=== PATIENT | female | born 1960 | race American Indian/Alaskan Native ===

== ENCOUNTER 2019-01-29 16:19 | Emergency (ER) | payer MEDICAID ==
--- NOTE | 2019-01-29 17:18 | EDM.PDOC ---
ED HPI GENERAL MEDICAL PROBLEM - General Chief Complaint: Back Pain or Injury Stated Complaint: BACK PAIN Time Seen by Provider: 01/29/19 17:00 Source of Information: Reports: Patient - History of Present Illness INITIAL COMMENTS - FREE TEXT/NARRATIVE: pt with Hx of chronic low back pain, is here basically asking for refill on her vicodine untill she is able to follow at pain clinic on Friday, pt has been treated with vicodin TID by her PCP until 10 days ago when she was refered to pain clinic, however she has missed her appointment due to the snow storm, pt state she was rescheduled on the , pt report Hx of low back dull pain X 3 years radiating to both legs denies with this any other associated sx or concerns. Low back Pain Score (Numeric/FACES): 7 - Related Data Allergies Allergy/AdvReac Type Severity Reaction Status Date / Time Penicillins Allergy Cannot Verified 01/29/19 16:44 Remember Home Meds: Home Meds ClonazePAM [KlonoPIN] 1 mg PO BID 04/28/14 [History] DULoxetine [Cymbalta] 120 mg PO DAILY 04/28/14 [History] Etodolac 400 mg PO DAILY 04/28/14 [History] Insulin Glarg,Human.Rec.Analog [Lantus] 20 unit SUBCUT DAILY 04/28/14 [History] Pregabalin [Lyrica] 300 mg PO DAILY 04/28/14 [History] Simvastatin [Zocor] 20 mg PO BEDTIME 04/28/14 [History] metFORMIN [Glucophage] 1,000 mg PO BIDM 04/28/14 [History] Past Medical History HEENT History: Reports: Impaired Vision Cardiovascular History: Reports: High Cholesterol, Hypertension Other Cardiovascular History: palpitations Respiratory History: Reports: Asthma Gastrointestinal History: Reports: Hemorrhoids, Irritable Bowel Syndrome 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: Reports: Fibroids Musculoskeletal History: Reports: Osteoarthritis Psychiatric History: Reports: Anxiety, Depression, Panic Attack, Psych Hospitalization(s) Endocrine/Metabolic History: Reports: Diabetes, Type II, Obesity/BMI 30+ - Past Surgical History GI Surgical History: Reports: Cholecystectomy Musculoskeletal Surgical History: Reports: Arthroscopic Knee Social & Family History - Family History Family Medical History: Noncontributory - Tobacco Use Smoking Status *Q: Current Every Day Smoker Years of Tobacco use: 10 Packs/Tins Daily: 0.5 - Caffeine Use Caffeine Use: Reports: Coffee - Recreational Drug Use Recreational Drug Use: No ED ROS GENERAL - Review of Systems Review Of Systems: See Below Constitutional: Reports: No Symptoms Respiratory: Reports: No Symptoms Cardiovascular: Reports: No Symptoms GI/Abdominal: Reports: No Symptoms ED EXAM, GENERAL - Physical Exam Exam: See Below Exam Limited By: No Limitations General Appearance: Alert, WD/WN, Mild Distress Respiratory/Chest: No Respiratory Distress, Lungs Clear, Normal Breath Sounds, No Accessory Muscle Use, Chest Non-Tender Cardiovascular: Normal Peripheral Pulses, Regular Rate, Rhythm, No Edema, No Gallop, No JVD, No Murmur, No Rub GI/Abdominal: Normal Bowel Sounds, Soft, Non-Tender Extremities: Other (tender all across lower back, ROm at spin is normal. ) Neurological: Alert, Oriented, CN II-XII Intact, Normal Cognition, Normal Gait, Normal Reflexes, No Motor/Sensory Deficits Course - Vital Signs Text/Narrative:: pt has chronic low back pain and was given 10 tablets on Vicodin to cover her until she is able to follow at pain clinic this Friday. Departure - Departure Time of Disposition: 17:18 Disposition: Home, Self-Care 01 Clinical Impression: Low back pain - Discharge Information Referrals: Yessi Watts SHOW GIRL [Primary Care Provider] -
[2019-01-29 17:37] VITALS: BP 128/75
== END 2019-01-29 17:33 | disposition home or self-care (01) ==
LOC: FB.ED 16:19
DX: M54.5 Low back pain (principal); I10 Essential (primary) hypertension; F17.210 Nicotine dependence, cigarettes, uncomplicated; E11.9 Type 2 diabetes mellitus without complications; E66.9 Obesity, unspecified; Z88.0 Allergy status to penicillin; Z79.899 Other long term (current) drug therapy
CPT/HCPCS: 99283

== ENCOUNTER 2019-03-10 17:23 | Emergency (ER) | payer MEDICAID ==
--- NOTE | 2019-03-10 18:16 | EDM.PDOC ---
ED HPI GENERAL MEDICAL PROBLEM - General Chief Complaint: ENT Problem Stated Complaint: ABCESS TOOTH Time Seen by Provider: 03/10/19 17:50 Source of Information: Reports: Patient History Limitations: Reports: No Limitations - History of Present Illness INITIAL COMMENTS - FREE TEXT/NARRATIVE: 58-year-old female with carious dentition and right upper dental pain for the past 2 weeks. She reports that her tooth continues to fragment and pieces come out frequently. She has noted swelling in the right upper jaw for the past week. She reports the pain is a 7/10 and it is aching, throbbing and sharp at times. It seems to radiate over the right side of her face and she has a headache associated with it. She has recently had shingles on her right lower jaw and she also reports that she had a pneumonia. She is not on antibiotics at present. She is supposed to see a dentist on Friday. She's had nausea today but no vomiting. She has had no fever. No chills. She is chronically on hydrocodone for her chronic back pain. There are no other associated signs or symptoms. 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 - Related Data Allergies Allergy/AdvReac Type Severity Reaction Status Date / Time Penicillins Allergy Cannot Verified 03/10/19 17:34 Remember Home Meds: Home Meds ClonazePAM [KlonoPIN] 1 mg PO BID 04/28/14 [History] DULoxetine [Cymbalta] 120 mg PO DAILY 04/28/14 [History] Etodolac 400 mg PO DAILY 04/28/14 [History] Insulin Glarg,Human.Rec.Analog [Lantus] 20 unit SUBCUT DAILY 04/28/14 [History] Pregabalin [Lyrica] 300 mg PO DAILY 04/28/14 [History] Simvastatin [Zocor] 20 mg PO BEDTIME 04/28/14 [History] metFORMIN [Glucophage] 1,000 mg PO BIDM 04/28/14 [History] Hydrocodone/Acetaminophen [Hydrocodon-Acetaminophen 5-325] 1 each PO TID #10 tablet 01/29/19 [Rx] Clindamycin HCl 450 mg PO TID 7 Days #42 capsule 03/10/19 [Rx] Past Medical History HEENT History: Reports: Impaired Vision Cardiovascular History: Reports: High Cholesterol, Hypertension Other Cardiovascular History: palpitations Respiratory History: Reports: Asthma Gastrointestinal History: Reports: Hemorrhoids, Irritable Bowel Syndrome 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: Reports: Fibroids Musculoskeletal History: Reports: Back Pain, Chronic, Osteoarthritis Psychiatric History: Reports: Anxiety, Depression, Panic Attack, Psych Hospitalization(s) Endocrine/Metabolic History: Reports: Diabetes, Type II, Obesity/BMI 30+ - Past Surgical History GI Surgical History: Reports: Cholecystectomy Female Surgical History: Reports: Hysterectomy, Tubal Ligation Musculoskeletal Surgical History: Reports: Arthroscopic Knee (2 on left and 1 on right), Other (See Below) (Foot surgery 2) Social & Family History - Tobacco Use Smoking Status *Q: Current Every Day Smoker - Caffeine Use Caffeine Use: Reports: Coffee - Alcohol Use Alcohol Use History: No - Living Situation & Occupation Social History Comment: Cares for her grandchildren. ED ROS GENERAL - Review of Systems Review Of Systems: See Below Constitutional: Reports: No Symptoms HEENT: Reports: Dental Pain (With gum swelling and redness.) Respiratory: Reports: Wheezing (But this is chronic), Cough Cardiovascular: Reports: No Symptoms Endocrine: Reports: Other (She reports that her blood sugars have been good.) GI/Abdominal: Reports: Nausea : Reports: No Symptoms Musculoskeletal: Reports: Back Pain (Chronic) Skin: Reports: No Symptoms Neurological: Reports: Headache Hematologic/Lymphatic: Reports: No Symptoms Immunologic: Reports: No Symptoms ED EXAM, GENERAL - Physical Exam Exam: See Below Exam Limited By: No Limitations General Appearance: Alert, WD/WN, No Apparent Distress Eye Exam: Bilateral Eye: EOMI, Normal Inspection, PERRL Ears: Normal External Exam, Hearing Grossly Normal Nose: Normal Inspection, Normal Mucosa, No Blood Throat/Mouth: Normal Voice, No Airway Compromise, Inflammation, Other (Carious dentition with right upper tooth that is quite carious and with associated gingival erythema) Head: Atraumatic, Normocephalic Neck: Normal Inspection, Supple, Non-Tender, Full Range of Motion Respiratory/Chest: No Respiratory Distress, No Accessory Muscle Use, Chest Non- Tender, Wheezing (That clears with cough) Cardiovascular: Normal Peripheral Pulses, Regular Rate, Rhythm, No JVD Peripheral Pulses: 2+: Radial (L), Radial (R) GI/Abdominal: Normal Bowel Sounds, Soft, Non-Tender Back Exam: Normal Inspection Extremities: Normal Inspection, Normal Range of Motion, Non-Tender, No Pedal Edema, Normal Capillary Refill Neurological: Alert, Oriented, CN II-XII Intact, Normal Cognition, No Motor/ Sensory Deficits Skin Exam: Warm, Dry, Intact, Normal Color, No Rash Lymphatic: No Adenopathy Course - Orders/Labs/Meds Orders: Active Orders 24 hr Category Date Time Status Acetaminophen/HYDROcodone [Bethany 325-5 MG] Med 03/10/19 18:08 Once 2 tab PO ONETIME ONE Clindamycin HCl [Cleocin] Med 03/10/19 18:08 Once 450 mg PO ONETIME ONE Ondansetron [Zofran ODT] Med 03/10/19 18:08 Once 4 mg PO ONETIME ONE Departure - Departure Time of Disposition: 18:23 Disposition: Home, Self-Care 01 Condition: Good Clinical Impression: Dental abscess, Poor dentition, Pain, dental - Discharge Information Prescriptions: Clindamycin HCl 450 mg PO TID 7 Days #42 capsule Referrals: Yessi Watts MANAGER ENGINE [Primary Care Provider] - Forms: ED Department Discharge Additional Instructions: You appear to have a dental abscess. You may take ibuprofen and Tylenol as needed for pain. For any further pain medications, you will need to go through your primary doctor. Keep the follow-up appointment with the dentist on 03/12/2019, that you have scheduled. Medication as prescribed (clindamycin 150 mg ). You should take probiotics or eat yogurt daily while you are on the antibiotics. Back to the emergency department for trouble swallowing, trouble breathing, unrelenting vomiting or any other concerning sign or symptom. - My Orders Last 24 Hours: My Active Orders 03/10/19 18:08 Acetaminophen/HYDROcodone [Bethany 325-5 MG] 2 tab PO ONETIME ONE Clindamycin HCl [Cleocin] 450 mg PO ONETIME ONE Ondansetron [Zofran ODT] 4 mg PO ONETIME ONE - Assessment/Plan Last 24 Hours: My Active Orders 03/10/19 18:08 Acetaminophen/HYDROcodone [Bethany 325-5 MG] 2 tab PO ONETIME ONE Clindamycin HCl [Cleocin] 450 mg PO ONETIME ONE Ondansetron [Zofran ODT] 4 mg PO ONETIME ONE
[2019-03-10] MEDS: Acetaminophen/HYDROcodone 325-5 MG Tab PO ONE (18:49)
[2019-03-10] MEDS: Ondansetron 4 MG Tab.DIS PO ONE (18:49)
[2019-03-10] MEDS: Clindamycin HCl 150 MG Cap PO ONE (18:49)
[2019-03-10 19:16] VITALS: BP 159/80
== END 2019-03-10 19:07 | disposition home or self-care (01) ==
LOC: FB.ED 17:23
DX: K04.7 Periapical abscess without sinus (principal); K02.9 Dental caries, unspecified; K00.7 Teething syndrome; I10 Essential (primary) hypertension; E11.9 Type 2 diabetes mellitus without complications; Z79.4 Long term (current) use of insulin; F41.9 Anxiety disorder, unspecified; F32.9 Major depressive disorder, single episode, unspecified; E66.9 Obesity, unspecified; F17.200 Nicotine dependence, unspecified, uncomplicated; Z79.899 Other long term (current) drug therapy; Z90.49 Acquired absence of other specified parts of digestive tract; Z90.710 Acquired absence of both cervix and uterus; Z98.51 Tubal ligation status; Z88.0 Allergy status to penicillin
CPT/HCPCS: 99282; A9270-GY

== ENCOUNTER 2020-10-15 16:20 | Emergency (ER) | payer MEDICAID ==
[2020-10-15] MEDS ORDERED: Ondansetron 4 MG Tab.DIS PO ONE (16:21)
[2020-10-15] MEDS ORDERED: Acetaminophen/oxyCODONE 325-5 MG Tab PO ONE (16:21)
--- NOTE | 2020-10-15 17:09 | EDM.PDOC ---
ED HPI GENERAL MEDICAL PROBLEM - General Stated Complaint: EVAL CONSULT Time Seen by Provider: 10/15/20 17:00 Source of Information: Reports: Patient, Family (Patient's daughter) History Limitations: Reports: Other (Patient is a poor historian. Most of the information comes from the patient's daughter.) - History of Present Illness INITIAL COMMENTS - FREE TEXT/NARRATIVE: 59-year-old female with multiple myeloma and chronic renal failure on dialysis who was just in the hospital at [facility] in [place] 09/27 to 10/12/2020 where apparently she had sepsis. She also has chronic pain related to her multiple myeloma and upon discharge she was given morphine extended release and oxycodone for her pain. She has taken all of the oxycodone and reports that they really did not seem to help much with her pain in any event. She is supposed to be following up with a new provider at the [facility] in [place] history of this week but she would not be able to have any other pain medications until then. She currently reports that her pain is a 9/10 and it is uncontrolled with medications that she had. She is really having no other problems other than nausea and she reports that she was supposed to have had a prescription for Zofran but she does not have any Zofran. She has had no fevers or chills. She has had no diarrhea. She does get hemodialysis on Tuesdays, and Friday and had her dialysis yesterday without any problems. She is here primarily because she is having uncontrolled pain and needs a temporary solution until she can have a more permanent solution through her primary provider this coming week. Apparently she also has been set up for daptomycin infusions as an outpatient 3 times a week and she was supposed to have her first of these yesterday but failed to show for it. She was unaware of this. Therefore we will give her this dose as directed by her doctor from [place]. We have also instructed her on the additional doses that she will be getting next week as an outpatient through this hospital. The patient and her daughter are here and they really want nothing else done other than solution for her pain management as above. I have stressed to them that I could divide them with this to get her through until this week when she sees her primary provider but that is not something that we would be able to do in the future through the emergency department. There are no other associated signs or symptoms. There are no other modifying factors. 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 Medication(s) (Morphine extended release) Back Pain Score (Numeric/FACES): 7 - Related Data Allergies Allergy/AdvReac Type Severity Reaction Status Date / Time Penicillins Allergy Cannot Verified 10/15/20 19:45 Remember Home Meds: Home Meds ClonazePAM [KlonoPIN] 1 mg PO BID 04/28/14 [History] DULoxetine [Cymbalta] 120 mg PO DAILY 04/28/14 [History] Etodolac 400 mg PO DAILY 04/28/14 [History] Insulin Glarg,Human.Rec.Analog [Lantus] 20 unit SUBCUT DAILY 04/28/14 [History] Pregabalin [Lyrica] 300 mg PO DAILY 04/28/14 [History] Simvastatin [Zocor] 20 mg PO BEDTIME 04/28/14 [History] metFORMIN [Glucophage] 1,000 mg PO BIDM 04/28/14 [History] Hydrocodone/Acetaminophen [Hydrocodon-Acetaminophen 5-325] 1 each PO TID #10 tablet 01/29/19 [Rx] Clindamycin HCl 450 mg PO TID 7 Days #42 capsule 03/10/19 [Rx] HYDROmorphone [Dilaudid] 2 mg PO Q6H PRN #12 tab 10/15/20 [Rx] Ondansetron [Zofran ODT] 4 mg PO Q6H PRN #20 tab.dis 10/15/20 [Rx] Past Medical History HEENT History: Reports: Impaired Vision Cardiovascular History: Reports: High Cholesterol, Hypertension Other Cardiovascular History: palpitations Respiratory History: Reports: Asthma Gastrointestinal History: Reports: Hemorrhoids, Irritable Bowel Syndrome 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: Fibroids Other CANDLE POURER History: Musculoskeletal History: Reports: Back Pain, Chronic, Osteoarthritis Other Musculoskeletal History: R foot fx Neurological History: Reports: Migraines, Neuropathy, Diabetic Psychiatric History: Reports: Anxiety, Depression, Panic Attack, Psych Hospitalization(s) Other Psychiatric History: hx ETOH abuse Endocrine/Metabolic History: Reports: Diabetes, Type II, Obesity/BMI 30+ Hematologic History: Reports: Blood Transfusion(s) Oncologic (Cancer) History: Reports: Other (See Below) (Multiple myeloma) - Infectious Disease History Infectious Disease History: Reports: Chicken Pox, Measles, Mumps, Shingles - Past Surgical History HEENT Surgical History: Reports: Myringotomy w Tube(s) GI Surgical History: Reports: Cholecystectomy Female Surgical History: Reports: Hysterectomy, Tubal Ligation Musculoskeletal Surgical History: Reports: Arthroscopic Knee (2 on left and 1 on right), Other (See Below) (Foot surgery 2) Social & Family History - Tobacco Use Tobacco Use Status *Q: Current Every Day Tobacco User - Caffeine Use Caffeine Use: Reports: Coffee - Alcohol Use Alcohol Use History: No - Living Situation & Occupation Social History Comment: She is here with her daughter. ED ROS GENERAL - Review of Systems Review Of Systems: See Below Constitutional: Reports: Malaise, Fatigue HEENT: Reports: No Symptoms Respiratory: Reports: No Symptoms Cardiovascular: Reports: No Symptoms Endocrine: Reports: Fatigue GI/Abdominal: Reports: Nausea, Vomiting Musculoskeletal: Reports: Other (Diffuse, whole-body pain) Skin: Reports: Wound (Multiple sores scattered over her body that have been long-standing and related to her condition.) Neurological: Reports: Weakness (Generalized) Hematologic/Lymphatic: Reports: No Symptoms Immunologic: Reports: No Symptoms ED EXAM, GENERAL - Physical Exam Exam: See Below Exam Limited By: No Limitations General Appearance: Alert, WD/WN, Mild Distress, Other (He is alert, appropriate and effluent in her conversation. She is nontoxic in appearance.) Eye Exam: Bilateral Eye: EOMI, Normal Inspection (Sclera are anicteric) Ears: Normal External Exam, Hearing Grossly Normal Ear Exam: Bilateral Ear: Auricle Normal Nose: Normal Inspection, Normal Mucosa, No Blood Throat/Mouth: Normal Oropharynx, Normal Voice, No Airway Compromise Head: Atraumatic, Normocephalic Neck: Normal Inspection, Supple, Non-Tender, Full Range of Motion Respiratory/Chest: No Respiratory Distress, Lungs Clear, Normal Breath Sounds, No Accessory Muscle Use, Chest Non-Tender Cardiovascular: Normal Peripheral Pulses, Regular Rate, Rhythm, No Murmur Peripheral Pulses: 2+: Radial (L), Radial (R) GI/Abdominal: Normal Bowel Sounds, Soft, Non-Tender, No Mass Back Exam: Normal Inspection Extremities: Normal Inspection, Normal Capillary Refill, Pedal Edema Neurological: Alert, Oriented, CN II-XII Intact, Normal Cognition, No Motor/Sensory Deficits Skin Exam: Warm, Dry, Normal Color, Wound/Incision (Scattered sores on her arms and trunk) Course - Vital Signs Last Recorded V/S: Last Vital Signs Temp 36.6 C 10/15/20 18:00 Pulse 85 10/15/20 18:00 Resp 20 10/15/20 18:00 BP 139/90 10/15/20 18:00 Pulse Ox 95 10/15/20 18:00 - Orders/Labs/Meds Meds: Medications Discontinued Medications Generic Name Dose Route Start Last Admin Trade Name Lui PRN Reason Stop Dose Admin Daptomycin 440 mg 10/15/20 17:30 10/15/20 17:45 Cubicin IV 10/15/20 17:31 440 mg ONETIME ONE Administration Hydromorphone HCl 2 mg 10/15/20 17:32 10/15/20 18:00 Dilaudid PO 10/15/20 17:33 2 mg ONETIME ONE Administration Ondansetron HCl 4 mg 10/15/20 17:31 10/15/20 17:50 Zofran Odt PO 10/15/20 17:32 4 mg ONETIME ONE Administration - Re-Assessments/Exams Free Text/Narrative Re-Assessment/Exam: 10/15/20 17:30: Patient missed an outpatient visit yesterday for daptomycin infusion and we will carry that out today. She is here primarily because she is having pain control problems and she is out of her oxycodone. Oxycodone was not really helping with her pain and she needs additional pain medications to get her through until she can follow-up with her doctor on Friday of this coming week. She also does not have any Zofran for nausea. I will give her take-home packs of Zofran and Percocet and I will also provide her with prescriptions for Zofran and for a small number of Dilaudid tablets. I have stressed that for any further pain control measures, they will have to go through the primary provider this week. The plan will be to discharge her after the above. Departure - Departure Time of Disposition: 18:20 Disposition: Home, Self-Care 01 Condition: Good Clinical Impression: Uncontrolled pain Multiple myeloma Qualifiers: Multiple myeloma remission status: not in remission Qualified Code(s): C90.00 - Multiple myeloma not having achieved remission - Discharge Information Prescriptions: HYDROmorphone [Dilaudid] 2 mg PO Q6H PRN #12 tab PRN Reason: Moderate to severe pain Ondansetron [Zofran ODT] 4 mg PO Q6H PRN #20 tab.dis PRN Reason: Nausea/Vomiting Referrals: PCP,Not In Area [Ordering Only Provider] - Forms: ED Department Discharge Additional Instructions: Continue your cares as per your doctor in [place]. Keep your appointment with your doctor on Friday of this coming week. I have given you prescriptions for antinausea medication (Zofran 4 mg ODT) and for additional pain medications (Dilaudid 2 mg). You will need to get all further pain medications and pain management through your primary provider. We also gave you your outpatient infusion of daptomycin that you were supposed to get yesterday. You need to follow-up with your doctor in [place] in regard to any further outpatient visits that you have been scheduled. Back to the emergency department for unrelenting vomiting, severe weakness, trouble breathing, high fever or any other concerning sign or symptom. Sepsis Event Note (ED) - Focused Exam Vital Signs: Vital Signs Temp Pulse Resp BP Pulse Ox 10/15/20 18:00 36.6 C 85 20 139/90 95
[2020-10-15] MEDS: DAPTOmycin 500 MG Vial IV ONE (17:45)
[2020-10-15] MEDS: Ondansetron 4 MG Tab.DIS PO ONE (17:50)
[2020-10-15] MEDS: HYDROmorphone 2 MG Tab PO ONE (18:00)
[2020-10-15 19:45] VITALS: BP 139/90; PULSE 85
== END 2020-10-15 18:20 | disposition home or self-care (01) ==
LOC: FB.ED 16:20
DX: R52 Pain, unspecified (principal); C90.00 Multiple myeloma not having achieved remission; L98.9 Disorder of the skin and subcutaneous tissue, unspecified; I10 Essential (primary) hypertension; E78.00 Pure hypercholesterolemia, unspecified; J45.909 Unspecified asthma, uncomplicated; E66.9 Obesity, unspecified; E11.40 Type 2 diabetes mellitus with diabetic neuropathy, unspecified; F41.9 Anxiety disorder, unspecified; F32.9 Major depressive disorder, single episode, unspecified; F17.200 Nicotine dependence, unspecified, uncomplicated; Z88.0 Allergy status to penicillin; Z79.4 Long term (current) use of insulin; Z90.710 Acquired absence of both cervix and uterus; Z98.51 Tubal ligation status; Z79.899 Other long term (current) drug therapy
CPT/HCPCS: 96374; 99283; A9270; J0878

== ENCOUNTER 2020-10-25 20:38 | Emergency (ER) | payer MEDICAID ==
[2020-10-25] MEDS ORDERED: cefTRIAXone 2 GM Vial IVPUSH ONE (20:57)
[2020-10-25] MEDS ORDERED: Sodium Chloride 0.9% 1,000 ML IV ONE (20:57)
[2020-10-25 21:12] VITALS: BP 153/101; PULSE 131
--- NOTE | 2020-10-25 21:34 | EDM.PDOC ---
ED HPI GENERAL MEDICAL PROBLEM - General Chief Complaint: Fever Stated Complaint: chills/fever Time Seen by Provider: 10/25/20 21:31 Source of Information: Reports: Patient, Family, Old Records History Limitations: Reports: Altered Mental Status - History of Present Illness INITIAL COMMENTS - FREE TEXT/NARRATIVE: Patti is a 59 yo female with fever of sudden onset this evening. She was brought by daughter,and is somewhat confused. She has a h/o MRSA bacteremia nd undergoes thrice weekly infusions fo Daptomycin. She also has a h/o MM and is on Chemotherapy,with a new cycle apparently started today.Patti has DM,chronic pain and ESRD( with x 3 weekly Dialysis in [facility]) - Related Data Allergies Allergy/AdvReac Type Severity Reaction Status Date / Time Penicillins Allergy Cannot Verified 10/25/20 20:59 Remember Home Meds: Home Meds ClonazePAM [KlonoPIN] 1 mg PO BID 04/28/14 [History] DULoxetine [Cymbalta] 120 mg PO DAILY 04/28/14 [History] Etodolac 400 mg PO DAILY 04/28/14 [History] Insulin Glarg,Human.Rec.Analog [Lantus] 20 unit SUBCUT DAILY 04/28/14 [History] Pregabalin [Lyrica] 300 mg PO DAILY 04/28/14 [History] Simvastatin [Zocor] 20 mg PO BEDTIME 04/28/14 [History] metFORMIN [Glucophage] 1,000 mg PO BIDM 04/28/14 [History] Hydrocodone/Acetaminophen [Hydrocodon-Acetaminophen 5-325] 1 each PO TID #10 tablet 01/29/19 [Rx] Clindamycin HCl 450 mg PO TID 7 Days #42 capsule 03/10/19 [Rx] HYDROmorphone [Dilaudid] 2 mg PO Q6H PRN #12 tab 10/15/20 [Rx] Ondansetron [Zofran ODT] 4 mg PO Q6H PRN #20 tab.dis 10/15/20 [Rx] Past Medical History HEENT History: Reports: Impaired Vision Cardiovascular History: Reports: High Cholesterol, Hypertension Other Cardiovascular History: palpitations Respiratory History: Reports: Asthma Gastrointestinal History: Reports: Hemorrhoids, Irritable Bowel Syndrome COOLER TENDER History: Reports: Fibroids Other COOLER TENDER History: Musculoskeletal History: Reports: Back Pain, Chronic, Osteoarthritis Other Musculoskeletal History: R foot fx Neurological History: Reports: Migraines, Neuropathy, Diabetic Psychiatric History: Reports: Anxiety, Depression, Panic Attack, Psych Hospitalization(s) Other Psychiatric History: hx ETOH abuse Endocrine/Metabolic History: Reports: Diabetes, Type II, Obesity/BMI 30+ Hematologic History: Reports: Blood Transfusion(s) Oncologic (Cancer) History: Reports: Other (See Below) (Multiple myeloma) - Infectious Disease History Infectious Disease History: Reports: Chicken Pox, Measles, Mumps, Shingles - Past Surgical History HEENT Surgical History: Reports: Myringotomy w Tube(s) Social & Family History - Family History Family Medical History: No Pertinent Family History - Caffeine Use Caffeine Use: Reports: Coffee ED ROS GENERAL - Review of Systems Review Of Systems: Comprehensive ROS is negative, except as noted in HPI. ED EXAM, SEPSIS - Physical Exam Exam: See Below Exam Limited By: Altered Mental Status General Appearance: Alert, Mild Distress Nose: Normal Inspection Throat/Mouth: Normal Inspection Head: Atraumatic Neck: Normal Inspection Respiratory/Chest: Crackles, Rhonchi Cardiovascular: Tachycardia GI/Abdominal Exam: Soft Psychiatric: Normal Affect Skin: Warm Course - Vital Signs Last Recorded V/S: Last Vital Signs Temp 103.3 F H 10/25/20 20:45 Pulse 131 H 10/25/20 20:45 Resp 23 H 10/25/20 20:45 BP 153/101 H 10/25/20 20:45 Pulse Ox 96 10/25/20 20:45 - Orders/Labs/Meds Orders: Active Orders 24 hr Category Date Time Status Chest 1V Frontal [CR] Stat Exams 10/25/20 20:56 Taken CORONAVIRUS COVID-19 BLADE [MOLEC] Stat Lab 10/25/20 20:56 Ordered CULTURE BLOOD [BC] Urgent Lab 10/25/20 21:10 Received CULTURE BLOOD [BC] Urgent Lab 10/25/20 21:15 Received CULTURE URINE [RM] Stat Lab 10/25/20 22:05 Ordered Sodium Chloride 0.9% [Saline Flush] Med 10/25/20 20:56 Active 10 ml FLUSH ASDIRECTED PRN Vancomycin/Dextrose 5%-Water [Vancomycin 1 GM/200 ML in Med 10/25/20 22:00 Active D5W] 1 gm Premix Bag 1 bag IV ONETIME Blood Culture x2 Reflex Set [OM.PC] Urgent Oth 10/25/20 20:56 Ordered Isolation [COMM] Routine Oth 10/25/20 20:58 Ordered Peripheral IV Insertion Adult [OM.PC] Routine Oth 10/25/20 20:56 Ordered Medication Orders Vancomycin HCl 1 gm/ Premix 200 mls @ 133.605 mls/hr IV ONETIME ONE Stop: 10/25/20 23:29 Last Admin: 10/25/20 22:04 Dose: 133.605 mls/hr Documented by: SILVIA Sodium Chloride (Saline Flush) 10 ml FLUSH ASDIRECTED PRN PRN Reason: Keep Vein Open Last Admin: 10/25/20 21:55 Dose: 10 ml Documented by: Admin: 10/25/20 21:38 Dose: 10 ml Documented by: CHRISTOPHE Labs: Laboratory Tests 10/25/20 10/25/20 10/25/20 Range/Units 21:10 21:10 21:10 WBC 8.2 (3.0-10.3) x10-3/uL RBC 3.10 L (3.60-5.20) x10(6)uL Hgb 8.9 L (11.4-15.5) g/dL Hct 28.2 L (34.2-48.2) % MCV 90.7 (76.7-100.5) fL MCH 28.8 (23.9-33.9) pg MCHC 31.8 L (31.9-34.8) g/dL RDW 15.5 (12.3-16.5) % Plt Count 273 (151-488) x10(3)uL MPV 8.4 (7.1-12.4) fL Neut % (Auto) 90.1 H (30.8-76.2) % Lymph % (Auto) 3.3 L (18.4-52.1) % Fleming % (Auto) 0.9 L (4.4-15.7) % Eos % (Auto) 5.6 (0.6-8.1) % Baso % (Auto) 0.1 L (0.2-1.5) % Neut # (Auto) 7.4 H (1.5-6.3) x10-3/uL Lymph # (Auto) 0.3 L (1.0-4.4) x10-3/uL Fleming # (Auto) 0.1 L (0.3-1.0) x10-3/uL Eos # (Auto) 0.5 (0.0-0.8) x10-3/uL Baso # (Auto) 0.0 (0.0-0.1) x10-3/uL Sodium 133 L (135-145) mmol/L Potassium 3.8 (3.5-5.3) mmol/L Chloride 94 L (100-110) mmol/L Carbon Dioxide 28 (21-32) mmol/L BUN 19 H (7-18) mg/dL Creatinine 5.2 H* (0.55-1.02) mg/dL Est Cr Clr Drug Dosing TNP Estimated GFR (MDRD) 8 L (>60) BUN/Creatinine Ratio 3.7 L (9-20) Glucose 74 L (80-116) mg/dL Lactic Acid (0.4-2.0) mmol/L Calcium 8.6 (8.6-10.2) mg/dL Total Bilirubin 0.3 (0.1-1.3) mg/dL AST 31 H D (5-25) IU/L ALT 19 D (12-36) U/L Alkaline Phosphatase 153 H (56-112) IU/L Troponin I 166.3 H* (4.0-60.3) pg/mL C-Reactive Protein (0.5-0.9) mg/dL Total Protein 7.0 (6.0-8.0) g/dL Albumin 2.6 L (3.5-5.2) g/dL Globulin 4.4 g/dL Albumin/Globulin Ratio 0.6 Urine Color (YELLOW) Urine Appearance (CLEAR) Urine pH (5.0-6.5) Ur Specific [place] (1.010-1.025) Urine Protein (NEGATIVE) mg/dL Urine Glucose (UA) (NORMAL) mg/dL Urine Ketones (NEGATIVE) mg/dL Urine Occult Blood (NEGATIVE) Urine Nitrite (NEGATIVE) Urine Bilirubin (NEGATIVE) Urine Urobilinogen (NEGATIVE) mg/dL Ur Leukocyte Esterase (NEGATIVE) Urine RBC (0-5) Urine WBC (0-5) Ur Squamous Epith Cells (NS,R,O) Urine Bacteria (NS) Urine Opiates Screen (NEGATIVE) Ur Oxycodone Screen (NEGATIVE) Ur Propoxyphene Screen (NEGATIVE) Ur Barbituates Screen (NEGATIVE) Ur Tricyclics Screen (NEGATIVE) Ur Phencyclidine Scrn (NEGATIVE) Ur Amphetamine Screen (NEGATIVE) Urine MDMA Screen (NEGATIVE) U Benzodiazepines Scrn (NEGATIVE) U Cocaine Metab Screen (NEGATIVE) U Marijuana (THC) Screen (NEGATIVE) 10/25/20 10/25/20 10/25/20 Range/Units 21:15 21:28 21:30 WBC (3.0-10.3) x10-3/uL RBC (3.60-5.20) x10(6)uL Hgb (11.4-15.5) g/dL Hct (34.2-48.2) % MCV (76.7-100.5) fL MCH (23.9-33.9) pg MCHC (31.9-34.8) g/dL RDW (12.3-16.5) % Plt Count (151-488) x10(3)uL MPV (7.1-12.4) fL Neut % (Auto) (30.8-76.2) % Lymph % (Auto) (18.4-52.1) % Fleming % (Auto) (4.4-15.7) % Eos % (Auto) (0.6-8.1) % Baso % (Auto) (0.2-1.5) % Neut # (Auto) (1.5-6.3) x10-3/uL Lymph # (Auto) (1.0-4.4) x10-3/uL Fleming # (Auto) (0.3-1.0) x10-3/uL Eos # (Auto) (0.0-0.8) x10-3/uL Baso # (Auto) (0.0-0.1) x10-3/uL Sodium (135-145) mmol/L Potassium (3.5-5.3) mmol/L Chloride (100-110) mmol/L Carbon Dioxide (21-32) mmol/L BUN (7-18) mg/dL Creatinine (0.55-1.02) mg/dL Est Cr Clr Drug Dosing Estimated GFR (MDRD) (>60) BUN/Creatinine Ratio (9-20) Glucose (80-116) mg/dL Lactic Acid 1.4 (0.4-2.0) mmol/L Calcium (8.6-10.2) mg/dL Total Bilirubin (0.1-1.3) mg/dL AST (5-25) IU/L ALT (12-36) U/L Alkaline Phosphatase (56-112) IU/L Troponin I (4.0-60.3) pg/mL C-Reactive Protein 15.4 H* (0.5-0.9) mg/dL Total Protein (6.0-8.0) g/dL Albumin (3.5-5.2) g/dL Globulin g/dL Albumin/Globulin Ratio Urine Color Yellow (YELLOW) Urine Appearance Clear (CLEAR) Urine pH 8.0 H (5.0-6.5) Ur Specific [place] 1.010 (1.010-1.025) Urine Protein Trace (NEGATIVE) mg/dL Urine Glucose (UA) Normal (NORMAL) mg/dL Urine Ketones Negative (NEGATIVE) mg/dL Urine Occult Blood Moderate H (NEGATIVE) Urine Nitrite Negative (NEGATIVE) Urine Bilirubin Negative (NEGATIVE) Urine Urobilinogen Normal (NEGATIVE) mg/dL Ur Leukocyte Esterase Large H (NEGATIVE) Urine RBC 5-10 H (0-5) Urine WBC 10-20 H (0-5) Ur Squamous Epith Cells Occasional (NS,R,O) Urine Bacteria Moderate H (NS) Urine Opiates Screen (NEGATIVE) Ur Oxycodone Screen (NEGATIVE) Ur Propoxyphene Screen (NEGATIVE) Ur Barbituates Screen (NEGATIVE) Ur Tricyclics Screen (NEGATIVE) Ur Phencyclidine Scrn (NEGATIVE) Ur Amphetamine Screen (NEGATIVE) Urine MDMA Screen (NEGATIVE) U Benzodiazepines Scrn (NEGATIVE) U Cocaine Metab Screen (NEGATIVE) U Marijuana (THC) Screen (NEGATIVE) 10/25/20 Range/Units 21:30 WBC (3.0-10.3) x10-3/uL RBC (3.60-5.20) x10(6)uL Hgb (11.4-15.5) g/dL Hct (34.2-48.2) % MCV (76.7-100.5) fL MCH (23.9-33.9) pg MCHC (31.9-34.8) g/dL RDW (12.3-16.5) % Plt Count (151-488) x10(3)uL MPV (7.1-12.4) fL Neut % (Auto) (30.8-76.2) % Lymph % (Auto) (18.4-52.1) % Fleming % (Auto) (4.4-15.7) % Eos % (Auto) (0.6-8.1) % Baso % (Auto) (0.2-1.5) % Neut # (Auto) (1.5-6.3) x10-3/uL Lymph # (Auto) (1.0-4.4) x10-3/uL Fleming # (Auto) (0.3-1.0) x10-3/uL Eos # (Auto) (0.0-0.8) x10-3/uL Baso # (Auto) (0.0-0.1) x10-3/uL Sodium (135-145) mmol/L Potassium (3.5-5.3) mmol/L Chloride (100-110) mmol/L Carbon Dioxide (21-32) mmol/L BUN (7-18) mg/dL Creatinine (0.55-1.02) mg/dL Est Cr Clr Drug Dosing Estimated GFR (MDRD) (>60) BUN/Creatinine Ratio (9-20) Glucose (80-116) mg/dL Lactic Acid (0.4-2.0) mmol/L Calcium (8.6-10.2) mg/dL Total Bilirubin (0.1-1.3) mg/dL AST (5-25) IU/L ALT (12-36) U/L Alkaline Phosphatase (56-112) IU/L Troponin I (4.0-60.3) pg/mL C-Reactive Protein (0.5-0.9) mg/dL Total Protein (6.0-8.0) g/dL Albumin (3.5-5.2) g/dL Globulin g/dL Albumin/Globulin Ratio Urine Color (YELLOW) Urine Appearance (CLEAR) Urine pH (5.0-6.5) Ur Specific [place] (1.010-1.025) Urine Protein (NEGATIVE) mg/dL Urine Glucose (UA) (NORMAL) mg/dL Urine Ketones (NEGATIVE) mg/dL Urine Occult Blood (NEGATIVE) Urine Nitrite (NEGATIVE) Urine Bilirubin (NEGATIVE) Urine Urobilinogen (NEGATIVE) mg/dL Ur Leukocyte Esterase (NEGATIVE) Urine RBC (0-5) Urine WBC (0-5) Ur Squamous Epith Cells (NS,R,O) Urine Bacteria (NS) Urine Opiates Screen Positive H (NEGATIVE) Ur Oxycodone Screen Positive H (NEGATIVE) Ur Propoxyphene Screen Negative (NEGATIVE) Ur Barbituates Screen Negative (NEGATIVE) Ur Tricyclics Screen Negative (NEGATIVE) Ur Phencyclidine Scrn Negative (NEGATIVE) Ur Amphetamine Screen Negative (NEGATIVE) Urine MDMA Screen Negative (NEGATIVE) U Benzodiazepines Scrn Negative (NEGATIVE) U Cocaine Metab Screen Negative (NEGATIVE) U Marijuana (THC) Screen Positive H (NEGATIVE) Meds: Medications Generic Name Dose Route Start Last Admin Trade Name Freq PRN Reason Stop Dose Admin Vancomycin HCl 1 gm/ Premix 200 mls @ 133.605 mls/hr 10/25/20 22:00 10/25/20 22:04 IV 10/25/20 23:29 133.605 mls/hr ONETIME ONE Administration Sodium Chloride 10 ml 10/25/20 20:56 10/25/20 21:55 Saline Flush FLUSH 10 ml ASDIRECTED PRN Administration Keep Vein Open Discontinued Medications Generic Name Dose Route Start Last Admin Trade Name Freq PRN Reason Stop Dose Admin Acetaminophen 1,000 mg 10/25/20 21:35 10/25/20 21:39 Tylenol Extra Strength PO 10/25/20 21:36 1,000 mg ONETIME ONE Administration Ceftriaxone Sodium 2 gm 10/25/20 20:57 10/25/20 21:40 Rocephin IVPUSH 10/25/20 20:58 2 gm ONETIME ONE Administration Sodium Chloride 1,000 mls @ 999 mls/hr 10/25/20 20:57 10/25/20 21:43 Normal Saline IV 10/25/20 21:57 999 mls/hr .BOLUS ONE Administration Vancomycin HCl 1 gm/ Sodium 250 mls @ 167 mls/hr 10/25/20 20:57 Chloride IV 10/25/20 22:26 ONETIME ONE Departure - Departure Time of Disposition: 22:38 Disposition: DC/Tfer to Other 70 Clinical Impression: Systemic infection, Pneumonia, Multiple myeloma - Discharge Information Referrals: Jerry Hernández PA [Primary Care Provider] - Forms: ED Department Discharge Sepsis Event Note (ED) - Evaluation Current Stage of Sepsis: Sepsis Possible Source of Sepsis: Unknown - Focused Exam Sepsis Event Note Statement: Focused Sepsis Exam Completed Vital Signs: Vital Signs Temp Pulse Resp BP Pulse Ox 10/25/20 20:45 103.3 F H 131 H 23 H 153/101 H 96 - Problem List & Annotations (1) Pneumonia SNOMED Code(s): 248772667 Code(s): J18.9 - PNEUMONIA, UNSPECIFIED ORGANISM Status: Acute Current Visit: Yes Qualifiers: Pneumonia type: due to unspecified organism (2) CKD (chronic kidney disease) SNOMED Code(s): 313868288 Code(s): N18.9 - CHRONIC KIDNEY DISEASE, UNSPECIFIED Status: Acute Current Visit: Yes Qualifiers: Chronic kidney disease stage: on chronic dialysis Qualified Code(s): N18.6 - End stage renal disease; Z99.2 - Dependence on renal dialysis (3) Multiple myeloma SNOMED Code(s): 324295014 Code(s): C90.00 - MULTIPLE MYELOMA NOT HAVING ACHIEVED REMISSION Status: Acute Current Visit: Yes Qualifiers: Multiple myeloma remission status: unspecified Qualified Code(s): C90.00 - Multiple myeloma not having achieved remission - Problem List Review Problem List Initiated/Reviewed/Updated: Yes - My Orders Last 24 Hours: My Active Orders 10/25/20 20:56 Chest 1V Frontal [CR] Stat CORONAVIRUS COVID-19 BLADE [MOLEC] Stat Sodium Chloride 0.9% [Saline Flush] 10 ml FLUSH ASDIRECTED PRN Blood Culture x2 Reflex Set [OM.PC] Urgent Peripheral IV Insertion Adult [OM.PC] Routine 10/25/20 20:58 Isolation [COMM] Routine 10/25/20 21:10 CULTURE BLOOD [BC] Urgent 10/25/20 21:15 CULTURE BLOOD [BC] Urgent 10/25/20 22:00 Vancomycin/Dextrose 5%-Water [Vancomycin 1 GM/200 ML in D5W] 1 gm Premix Bag 1 bag IV ONETIME 10/25/20 22:05 CULTURE URINE [RM] Stat - Assessment/Plan Last 24 Hours: My Active Orders 10/25/20 20:56 Chest 1V Frontal [CR] Stat CORONAVIRUS COVID-19 BLADE [MOLEC] Stat Sodium Chloride 0.9% [Saline Flush] 10 ml FLUSH ASDIRECTED PRN Blood Culture x2 Reflex Set [OM.PC] Urgent Peripheral IV Insertion Adult [OM.PC] Routine 10/25/20 20:58 Isolation [COMM] Routine 10/25/20 21:10 CULTURE BLOOD [BC] Urgent 10/25/20 21:15 CULTURE BLOOD [BC] Urgent 10/25/20 22:00 Vancomycin/Dextrose 5%-Water [Vancomycin 1 GM/200 ML in D5W] 1 gm Premix Bag 1 bag IV ONETIME 10/25/20 22:05 CULTURE URINE [RM] Stat Plan: We started IV access,Gave a bolus of 500 NS. After cultures,IV Rocephin an Vancomycin was given. Will transfer to [facility] for admission.
[2020-10-25] MEDS ORDERED: Acetaminophen 500 MG Tab PO ONE (21:35)
[2020-10-25] MEDS: Sodium Chloride 0.9% 10 ML Syringe FLUSH PRN ×2 (21:38→21:55)
[2020-10-25] MEDS ORDERED: Vancomycin/Dextrose 5%-Water 1 GM in Premix Bag 1 BAG IV ONE (22:00)
--- NOTE | 2020-10-26 15:41 | CR ---
INDICATION: Weakness, fever. CHEST ONE VIEW: A portable AP upright view of the chest was obtained 10/25/20 and compared with 09/10/12 and 01/03/12 revealing a double port central line in place with its tip at the right atrium. Overlying EKG leads are noted. The heart appears prominent on this examination emphasized by poor inspiration and AP positioning. Pulmonary vasculature is very prominent indistinct with interstitial markings compatible with CHF and interstitial lung edema - correlate clinically as other additional etiologies such as viral pneumonia cannot be excluded. Additionally, there are relatively heavy markings and possibly active infiltration in the lower lung field on the left with an area of increased density seen peripherally. This appearance could be on the basis of COVID-19 but should be correlated clinically. Full inspiration PA and lateral views of the chest may be helpful for further evaluation when clinically possible. MTDD
== END 2020-10-26 00:10 | disposition other institution (70) ==
LOC: FB.ED 20:38
DX: J18.9 Pneumonia, unspecified organism (principal); R65.10 Systemic inflammatory response syndrome (SIRS) of non-infectious origin without acute organ dysfunction; C90.00 Multiple myeloma not having achieved remission; R41.82 Altered mental status, unspecified; R00.0 Tachycardia, unspecified; I10 Essential (primary) hypertension; E78.00 Pure hypercholesterolemia, unspecified; J45.909 Unspecified asthma, uncomplicated; E11.40 Type 2 diabetes mellitus with diabetic neuropathy, unspecified; F41.9 Anxiety disorder, unspecified; F32.9 Major depressive disorder, single episode, unspecified; E66.9 Obesity, unspecified; Z68.24 Body mass index [BMI] 24.0-24.9, adult; Z88.0 Allergy status to penicillin; Z79.899 Other long term (current) drug therapy; Z79.4 Long term (current) use of insulin; Z20.828 Contact with and (suspected) exposure to other viral communicable diseases
CPT/HCPCS: 36415; 71045; 80053; 80305-QW; 81001; 83605; 84484; 85025; 86140; 87040; 87086; 87088; 87186; 87804; 87804-59; 93005; 96365; 96375; 99285-25; A9270-GY; J0696; J3370; J7030; U0002

== ENCOUNTER 2020-11-23 12:01 | Emergency (ER) | payer MEDICAID ==
[2020-11-23] MEDS ORDERED: Acetaminophen 650 MG Supp RECTAL ONE (12:21)
[2020-11-23] MEDS ORDERED: cefTRIAXone 2 GM Vial IVPUSH ONE (12:26)
[2020-11-23] MEDS ORDERED: Vancomycin/Dextrose 5%-Water 200 ML IV ONE (12:30)
--- NOTE | 2020-11-23 12:46 | EDM.PDOC ---
ED HPI GENERAL MEDICAL PROBLEM - General Stated Complaint: POSSIBLE LOW POTASSIUM Time Seen by Provider: 11/23/20 12:05 Source of Information: Reports: Family History Limitations: Reports: No Limitations - History of Present Illness INITIAL COMMENTS - FREE TEXT/NARRATIVE: c/o fever and sepsis pt dropped off by family who promptly left, pt unable to give us hx, did say "all over" when I asked her where she was having pain, pt did not know when she had gone to dialysis and a dtr where reached by RN, reports pt completed dialysis at 11a today, had a fever x 2d, has temp 103 here on chemo for multiple myeloma, last chemo 1w ago today pt had a similar presentation to ED here one month ago, given ceftriaxone 2 gm IV and vanco 1 gm IV, sent to [facility] x 2 neg, UC positive E coli resistant cipro and levo, sensitive all others has h/o MRSA sepsis, has received daptomycin IV as outpt in past for same family reports pt had a fever a dialysis today in [place], dialysis staff told family to take her to ED, family brought here because we "know her better" [facility] dialysis called by ROMAIN Mann, pt does dialysis [address], Sat. Last dialysis panel done 2d ago, [facility] will send to us. - Related Data Allergies Allergy/AdvReac Type Severity Reaction Status Date / Time Penicillins Allergy Cannot Verified 11/23/20 12:27 Remember Home Meds: Home Meds ClonazePAM [KlonoPIN] 0.5 mg PO BID 04/28/14 [History] Ondansetron [Zofran ODT] 4 mg PO Q6H PRN #20 tab.dis 10/15/20 [Rx] Morphine [MS Contin] 15 mg PO Q12HR PRN 10/25/20 [History] Albuterol [Ventolin HFA] 2 puff .XX Q4H PRN 11/23/20 [History] Aspirin [Ecotrin EC] 325 mg PO DAILY 11/23/20 [History] Calcium Acetate [PhosLo] 667 mg PO TID 11/23/20 [History] Cyclobenzaprine [Flexeril] 10 mg PO BEDTIME 11/23/20 [History] DULoxetine [Cymbalta] 30 mg PO DAILY 11/23/20 [History] Docusate Sodium [Colace] 100 mg PO BID 11/23/20 [History] Insulin Glargine,Hum.Rec.Anlog [Lantus Solostar] 40 unit SQ BEDTIME 11/23/20 [History] Lisinopril/Hydrochlorothiazide [Lisinopril-Hctz 10-12.5 mg Tab] 1 tab DAILY 11/23/20 [History] Metoprolol Succinate [Toprol Xl] 50 mg PO DAILY 11/23/20 [History] Mupirocin Oint [Bactroban Oint] 1 appful TP BID 11/23/20 [History] Pantoprazole Sodium [Protonix] 40 mg DAILY 11/23/20 [History] Pregabalin [Lyrica] 300 mg PO BID 11/23/20 [History] Simvastatin 20 mg PO BEDTIME 11/23/20 [History] Simvastatin [Zocor] 20 mg PO DAILY 11/23/20 [History] metFORMIN [Glucophage] 1,000 mg PO BIDMEALS 11/23/20 [History] oxyCODONE 10 mg PO Q6H PRN 11/23/20 [History] Past Medical History HEENT History: Reports: Impaired Vision Cardiovascular History: Reports: High Cholesterol, Hypertension Other Cardiovascular History: palpitations Respiratory History: Reports: Asthma Gastrointestinal History: Reports: Hemorrhoids, Irritable Bowel Syndrome Genitourinary History: Reports: Diabetic Nephropathy, Renal Disease 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 TEACHER History: Reports: Fibroids Other 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 TEACHER History: Musculoskeletal History: Reports: Back Pain, Chronic, Osteoarthritis Other Musculoskeletal History: R foot fx Neurological History: Reports: Migraines, Neuropathy, Diabetic Psychiatric History: Reports: Anxiety, Depression, Panic Attack, Psych Hospitalization(s) Other Psychiatric History: hx ETOH abuse Endocrine/Metabolic History: Reports: Diabetes, Type II, Obesity/BMI 30+ Hematologic History: Reports: Blood Transfusion(s), Other (See Below) Other Hematologic History: daptomycin out patient every other day, last 10-24-20 Immunologic History: Reports: Immunosuppression Other Immunologic History: chemo, last 10-25-20 Oncologic (Cancer) History: Reports: Malignant Melanoma, Other (See Below) Dermatologic History: Reports: Other (See Below) Other Dermatologic History: lesions upper torso - Infectious Disease History Infectious Disease History: Reports: Chicken Pox, Measles, Mumps, Shingles - Past Surgical History HEENT Surgical History: Reports: Myringotomy w Tube(s) Social & Family History - Family History Family Medical History: No Pertinent Family History - Caffeine Use Caffeine Use: Reports: None ED ROS GENERAL - Review of Systems Review Of Systems: Unable To Obtain (pt not able to provide ROS, fever only c/o per ) Reason Not Obtained: limited communication initially Constitutional: Reports: Fever HEENT: Reports: No Symptoms Respiratory: Reports: No Symptoms Cardiovascular: Reports: No Symptoms Endocrine: Reports: No Symptoms GI/Abdominal: Reports: No Symptoms : Reports: No Symptoms Musculoskeletal: Reports: No Symptoms Skin: Reports: No Symptoms Neurological: Reports: No Symptoms Psychiatric: Reports: No Symptoms Hematologic/Lymphatic: Reports: No Symptoms Immunologic: Reports: No Symptoms ED EXAM, SEPSIS - Physical Exam Exam: See Below Exam Limited By: Altered Mental Status General Appearance: Alert, WD/WN, Other (vigorous, makes eye contact, answers some questions, some answer appropriate) Nose: Normal Inspection Throat/Mouth: Normal Inspection, Normal Lips, Normal Oropharynx, Normal Voice, No Airway Compromise Head: Atraumatic, Normocephalic Neck: Normal Inspection, Supple, Non-Tender, Full Range of Motion. No: Lymphadenopathy (R), Lymphadenopathy (L) Respiratory/Chest: No Respiratory Distress, Lungs Clear, Normal Breath Sounds, Chest Non-Tender, Other (PO 85% on RA on arrival, no tachypnea, no dyspnea, no cough, no accessory muscles, no retractions) Cardiovascular: Regular Rate, Rhythm, No Edema, No Murmur, Other (2/6 TARA at LSB) GI/Abdominal Exam: Soft, Non-Tender, No Distention Back: Normal Inspection. No: CVA Tenderness (R), CVA Tenderness (L) Extremities: Normal Inspection, Normal Range of Motion, Non-Tender, No Pedal Edema Neurological: Alert, CN II-XII Intact, No Motor/Sensory Deficits Skin: Warm, Dry, Intact, Normal Color, No Rash Course - Vital Signs Last Recorded V/S: Last Vital Signs Temp 38.2 C H 11/23/20 14:30 Pulse 85 11/23/20 14:30 Resp 22 H 11/23/20 14:30 BP 110/52 L 11/23/20 14:30 Pulse Ox 96 11/23/20 14:30 - Orders/Labs/Meds Orders: Active Orders 24 hr Category Date Time Status EKG Documentation Completion [RC] ASDIRECTED Care 11/23/20 12:17 Active Oxygen Therapy Adult [Oxygen Therapy, ED] [RC] Care 11/23/20 12:05 Active ASDIRECTED CULTURE BLOOD [BC] Urgent Lab 11/23/20 12:03 Received CULTURE BLOOD [BC] Urgent Lab 11/23/20 12:10 Received Blood Culture x2 Reflex Set [OM.PC] Urgent Oth 11/23/20 12:16 Ordered Isolation [COMM] Routine Oth 11/23/20 12:19 Ordered EKG 12 Lead [EK] Routine Ther 11/23/20 12:16 Ordered Labs: Laboratory Tests 11/23/20 11/23/20 11/23/20 Range/Units 12:10 12:10 12:10 WBC 11.6 H (3.0-10.3) x10-3/uL RBC 3.07 L (3.60-5.20) x10(6)uL Hgb 8.9 L (11.4-15.5) g/dL Hct 27.1 L (34.2-48.2) % MCV 88.3 (76.7-100.5) fL MCH 28.9 (23.9-33.9) pg MCHC 32.7 (31.9-34.8) g/dL RDW 14.9 (12.3-16.5) % Plt Count 118 L (151-488) x10(3)uL MPV 9.1 (7.1-12.4) fL Neut % (Auto) 88.3 H (30.8-76.2) % Lymph % (Auto) 5.2 L (18.4-52.1) % [place] % (Auto) 5.3 (4.4-15.7) % Eos % (Auto) 0.9 (0.6-8.1) % Baso % (Auto) 0.3 (0.2-1.5) % Neut # (Auto) 10.2 H (1.5-6.3) x10-3/uL Lymph # (Auto) 0.6 L (1.0-4.4) x10-3/uL [place] # (Auto) 0.6 (0.3-1.0) x10-3/uL Eos # (Auto) 0.1 (0.0-0.8) x10-3/uL Baso # (Auto) 0.0 (0.0-0.1) x10-3/uL Sodium 135 (135-145) mmol/L Potassium 3.9 (3.5-5.3) mmol/L Chloride 94 L (100-110) mmol/L Carbon Dioxide 33 H (21-32) mmol/L BUN 11 (7-18) mg/dL Creatinine 2.4 H* (0.55-1.02) mg/dL Est Cr Clr Drug Dosing TNP Estimated GFR (MDRD) 21 L (>60) BUN/Creatinine Ratio 4.6 L (9-20) Glucose 62 L (80-116) mg/dL POC Glucose (74-100) mg/dL Lactic Acid (0.4-2.0) mmol/L Calcium 8.1 L (8.6-10.2) mg/dL Total Bilirubin 0.3 (0.1-1.3) mg/dL AST 46 H D (5-25) IU/L ALT 20 (12-36) U/L Alkaline Phosphatase 96 (56-112) IU/L Troponin I 16.7 (4.0-60.3) pg/mL C-Reactive Protein 16.1 H* (0.5-0.9) mg/dL Total Protein 6.6 (6.0-8.0) g/dL Albumin 3.0 L (3.5-5.2) g/dL Globulin 3.6 g/dL Albumin/Globulin Ratio 0.8 Urine Color (YELLOW) Urine Appearance (CLEAR) Urine pH (5.0-6.5) Ur Specific [place] (1.010-1.025) Urine Protein (NEGATIVE) mg/dL Urine Glucose (UA) (NORMAL) mg/dL Urine Ketones (NEGATIVE) mg/dL Urine Occult Blood (NEGATIVE) Urine Nitrite (NEGATIVE) Urine Bilirubin (NEGATIVE) Urine Urobilinogen (NEGATIVE) mg/dL Ur Leukocyte Esterase (NEGATIVE) Urine RBC (0-5) Urine WBC (0-5) Ur Squamous Epith Cells (NS,R,O) Urine Bacteria (NS) Urine Opiates Screen (NEGATIVE) Ur Oxycodone Screen (NEGATIVE) Ur Propoxyphene Screen (NEGATIVE) Ur Barbituates Screen (NEGATIVE) Ur Tricyclics Screen (NEGATIVE) Ur Phencyclidine Scrn (NEGATIVE) Ur Amphetamine Screen (NEGATIVE) Urine MDMA Screen (NEGATIVE) U Benzodiazepines Scrn (NEGATIVE) U Cocaine Metab Screen (NEGATIVE) U Marijuana (THC) Screen (NEGATIVE) SARS-CoV-2 RNA (BLADE) (NEGATIVE) 11/23/20 11/23/20 11/23/20 Range/Units 12:10 12:23 12:30 WBC (3.0-10.3) x10-3/uL RBC (3.60-5.20) x10(6)uL Hgb (11.4-15.5) g/dL Hct (34.2-48.2) % MCV (76.7-100.5) fL MCH (23.9-33.9) pg MCHC (31.9-34.8) g/dL RDW (12.3-16.5) % Plt Count (151-488) x10(3)uL MPV (7.1-12.4) fL Neut % (Auto) (30.8-76.2) % Lymph % (Auto) (18.4-52.1) % [place] % (Auto) (4.4-15.7) % Eos % (Auto) (0.6-8.1) % Baso % (Auto) (0.2-1.5) % Neut # (Auto) (1.5-6.3) x10-3/uL Lymph # (Auto) (1.0-4.4) x10-3/uL [place] # (Auto) (0.3-1.0) x10-3/uL Eos # (Auto) (0.0-0.8) x10-3/uL Baso # (Auto) (0.0-0.1) x10-3/uL Sodium (135-145) mmol/L Potassium (3.5-5.3) mmol/L Chloride (100-110) mmol/L Carbon Dioxide (21-32) mmol/L BUN (7-18) mg/dL Creatinine (0.55-1.02) mg/dL Est Cr Clr Drug Dosing Estimated GFR (MDRD) (>60) BUN/Creatinine Ratio (9-20) Glucose (80-116) mg/dL POC Glucose (74-100) mg/dL Lactic Acid 1.2 (0.4-2.0) mmol/L Calcium (8.6-10.2) mg/dL Total Bilirubin (0.1-1.3) mg/dL AST (5-25) IU/L ALT (12-36) U/L Alkaline Phosphatase (56-112) IU/L Troponin I (4.0-60.3) pg/mL C-Reactive Protein (0.5-0.9) mg/dL Total Protein (6.0-8.0) g/dL Albumin (3.5-5.2) g/dL Globulin g/dL Albumin/Globulin Ratio Urine Color Yellow (YELLOW) Urine Appearance Clear (CLEAR) Urine pH 9.0 H (5.0-6.5) Ur Specific [place] 1.015 (1.010-1.025) Urine Protein Negative (NEGATIVE) mg/dL Urine Glucose (UA) Normal (NORMAL) mg/dL Urine Ketones Negative (NEGATIVE) mg/dL Urine Occult Blood Moderate H (NEGATIVE) Urine Nitrite Negative (NEGATIVE) Urine Bilirubin Negative (NEGATIVE) Urine Urobilinogen Normal (NEGATIVE) mg/dL Ur Leukocyte Esterase Negative (NEGATIVE) Urine RBC 0-5 (0-5) Urine WBC 0-5 (0-5) Ur Squamous Epith Cells Few H (NS,R,O) Urine Bacteria Rare H (NS) Urine Opiates Screen (NEGATIVE) Ur Oxycodone Screen (NEGATIVE) Ur Propoxyphene Screen (NEGATIVE) Ur Barbituates Screen (NEGATIVE) Ur Tricyclics Screen (NEGATIVE) Ur Phencyclidine Scrn (NEGATIVE) Ur Amphetamine Screen (NEGATIVE) Urine MDMA Screen (NEGATIVE) U Benzodiazepines Scrn (NEGATIVE) U Cocaine Metab Screen (NEGATIVE) U Marijuana (THC) Screen (NEGATIVE) SARS-CoV-2 RNA (BLADE) Positive H (NEGATIVE) 11/23/20 11/23/20 11/23/20 Range/Units 12:30 15:43 16:02 WBC (3.0-10.3) x10-3/uL RBC (3.60-5.20) x10(6)uL Hgb (11.4-15.5) g/dL Hct (34.2-48.2) % MCV (76.7-100.5) fL MCH (23.9-33.9) pg MCHC (31.9-34.8) g/dL RDW (12.3-16.5) % Plt Count (151-488) x10(3)uL MPV (7.1-12.4) fL Neut % (Auto) (30.8-76.2) % Lymph % (Auto) (18.4-52.1) % [place] % (Auto) (4.4-15.7) % Eos % (Auto) (0.6-8.1) % Baso % (Auto) (0.2-1.5) % Neut # (Auto) (1.5-6.3) x10-3/uL Lymph # (Auto) (1.0-4.4) x10-3/uL [place] # (Auto) (0.3-1.0) x10-3/uL Eos # (Auto) (0.0-0.8) x10-3/uL Baso # (Auto) (0.0-0.1) x10-3/uL Sodium (135-145) mmol/L Potassium (3.5-5.3) mmol/L Chloride (100-110) mmol/L Carbon Dioxide (21-32) mmol/L BUN (7-18) mg/dL Creatinine (0.55-1.02) mg/dL Est Cr Clr Drug Dosing Estimated GFR (MDRD) (>60) BUN/Creatinine Ratio (9-20) Glucose (80-116) mg/dL POC Glucose 25 L* 132 H (74-100) mg/dL Lactic Acid (0.4-2.0) mmol/L Calcium (8.6-10.2) mg/dL Total Bilirubin (0.1-1.3) mg/dL AST (5-25) IU/L ALT (12-36) U/L Alkaline Phosphatase (56-112) IU/L Troponin I (4.0-60.3) pg/mL C-Reactive Protein (0.5-0.9) mg/dL Total Protein (6.0-8.0) g/dL Albumin (3.5-5.2) g/dL Globulin g/dL Albumin/Globulin Ratio Urine Color (YELLOW) Urine Appearance (CLEAR) Urine pH (5.0-6.5) Ur Specific [place] (1.010-1.025) Urine Protein (NEGATIVE) mg/dL Urine Glucose (UA) (NORMAL) mg/dL Urine Ketones (NEGATIVE) mg/dL Urine Occult Blood (NEGATIVE) Urine Nitrite (NEGATIVE) Urine Bilirubin (NEGATIVE) Urine Urobilinogen (NEGATIVE) mg/dL Ur Leukocyte Esterase (NEGATIVE) Urine RBC (0-5) Urine WBC (0-5) Ur Squamous Epith Cells (NS,R,O) Urine Bacteria (NS) Urine Opiates Screen Positive H (NEGATIVE) Ur Oxycodone Screen Positive H (NEGATIVE) Ur Propoxyphene Screen Negative (NEGATIVE) Ur Barbituates Screen Negative (NEGATIVE) Ur Tricyclics Screen Positive H (NEGATIVE) Ur Phencyclidine Scrn Negative (NEGATIVE) Ur Amphetamine Screen Negative (NEGATIVE) Urine MDMA Screen Negative (NEGATIVE) U Benzodiazepines Scrn Negative (NEGATIVE) U Cocaine Metab Screen Negative (NEGATIVE) U Marijuana (THC) Screen Positive H (NEGATIVE) SARS-CoV-2 RNA (BLADE) (NEGATIVE) Meds: Medications Discontinued Medications Generic Name Dose Route Start Last Admin Trade Name Lui PRN Reason Stop Dose Admin Acetaminophen 650 mg 11/23/20 12:21 11/23/20 12:28 Tylenol RECTAL 11/23/20 12:22 650 mg NOW ONE Administration Ceftriaxone Sodium 2 gm 11/23/20 12:26 11/23/20 12:40 Rocephin IVPUSH 11/23/20 12:27 2 gm ONETIME ONE Administration Dexamethasone 10 mg 11/23/20 15:33 11/23/20 15:37 Dexamethasone PO 11/23/20 15:34 10 mg ONETIME ONE Administration Dextrose/Water 50 ml 11/23/20 13:06 11/23/20 13:18 Dextrose 50% In Water IVPUSH 11/23/20 13:07 50 ml ONETIME ONE Administration Dextrose/Water 50 ml 11/23/20 15:48 11/23/20 15:45 Dextrose 50% In Water IVPUSH 11/23/20 15:49 50 ml ONETIME ONE Administration Vancomycin HCl 200 mls @ 200 mls/hr 11/23/20 12:30 11/23/20 12:54 Vancomycin 1 Gm/200 Ml In D5w IV 11/23/20 13:29 200 mls/hr ONETIME ONE Administration Sodium Chloride 500 mls @ 500 mls/hr 11/23/20 14:33 11/23/20 14:45 Normal Saline IV 11/23/20 15:32 500 mls/hr .BOLUS ONE Administration Dextrose/Sodium Chloride 1,000 mls @ 999 mls/hr 11/23/20 16:05 11/23/20 16:05 Dextrose 5%-Normal Saline IV 11/23/20 16:35 999 mls/hr ASDIRECTED EDITH Administration - Re-Assessments/Exams Free Text/Narrative Re-Assessment/Exam: 11/23/20 13:37 labs reviewed pt sitting upright, talking, more alert after APAP 650 mg KS and decrease temp Dr Vidal called, CxR 1v shows b/l infiltrates without evidence of pul congestion, central line tip may be in RV 11/23/20 14:47 acceptance received at [facility] by Dr Dahl, however dtr Aleta at [phone] said that care and records had just been transferred to [facility] and requested [place] Dr Rodriguez at [facility] accepted pt to COVID unit at [facility], waiting bed assignment, pt informed and agrees pt states she is full code Departure - Departure Time of Disposition: 14:50 Disposition: DC/Tfer to Other 70 Condition: Fair Clinical Impression: Pneumonia due to COVID-19 virus, Leukocytosis, Left shift, Hypoalbuminemia, Elevated C-reactive protein (CRP), Thrombocytopenia, Immunocompromised, Central line complication, Fever, Normochromic normocytic anemia Multiple myeloma Qualifiers: Multiple myeloma remission status: unspecified Qualified Code(s): C90.00 - Multiple myeloma not having achieved remission - Discharge Information *PRESCRIPTION DRUG MONITORING PROGRAM REVIEWED*: Not Applicable *COPY OF PRESCRIPTION DRUG MONITORING REPORT IN PATIENT SNOW: Not Applicable Referrals: Jerry Hernández PA [Primary Care Provider] - Forms: ED Department Discharge Sepsis Event Note (ED) - Focused Exam Vital Signs: Vital Signs Temp Pulse Resp BP Pulse Ox Pulse Ox 11/23/20 14:30 38.2 C H 85 22 H 110/52 L 96 11/23/20 13:30 38.8 C H 96 20 182/155 H 98 98 11/23/20 12:05 39.7 C H 99 21 H 175/127 H 85 L 85 L - My Orders Last 24 Hours: My Active Orders 11/23/20 12:03 CULTURE BLOOD [BC] Urgent 11/23/20 12:05 Oxygen Therapy Adult [Oxygen Therapy, ED] [RC] ASDIRECTED 11/23/20 12:10 CULTURE BLOOD [BC] Urgent 11/23/20 12:16 Blood Culture x2 Reflex Set [OM.PC] Urgent EKG 12 Lead [EK] Routine 11/23/20 12:17 EKG Documentation Completion [RC] ASDIRECTED 11/23/20 12:19 Isolation [COMM] Routine - Assessment/Plan Last 24 Hours: My Active Orders 11/23/20 12:03 CULTURE BLOOD [BC] Urgent 11/23/20 12:05 Oxygen Therapy Adult [Oxygen Therapy, ED] [RC] ASDIRECTED 11/23/20 12:10 CULTURE BLOOD [BC] Urgent 11/23/20 12:16 Blood Culture x2 Reflex Set [OM.PC] Urgent EKG 12 Lead [EK] Routine 11/23/20 12:17 EKG Documentation Completion [RC] ASDIRECTED 11/23/20 12:19 Isolation [COMM] Routine
[2020-11-23] MEDS ORDERED: 50% Dextrose in Water 50 ML Syringe IVPUSH ONE ×2 (13:06→15:48)
--- NOTE | 2020-11-23 14:20 | CR ---
INDICATION: Fever. CHEST, ONE VIEW: AP upright portable view of the chest 11/23/20 was compared with 10/25/20 and 09/11/12 and now reveals bilateral infiltration, slightly more prominent on the right than left scattered about the lungs. No gross consolidating pneumonia or definite effusion was seen. The heart appeared slightly enlarged. The aorta is somewhat tortuous. Overlying EKG leads are noted. Dual-port central catheter is noted with its tip in the right atrium - retraction of approximately 3 cm may be helpful for better positioning. IMPRESSION: 1. Bilateral infiltration which could be on the basis of viral pneumonia such as COVID-19 - correlate clinically. 2. ASHD with cardiomegaly. 3. Dual-port catheter with its tip within the right atrium. Retraction may be helpful. Report was called to Dr. Delacruz at 1302 hours. [facility]
[2020-11-23] MEDS ORDERED: Sodium Chloride 0.9% 500 ML IV ONE (14:33)
[2020-11-23 14:41] VITALS: BP 110/52; PULSE 85
[2020-11-23] MEDS ORDERED: Dexamethasone 4 MG Tab PO ONE (15:33)
[2020-11-23] MEDS ORDERED: Dextrose 5%-0.9% NaCl 1,000 ML IV SCH (16:05)
== END 2020-11-23 16:08 | disposition other institution (70) ==
LOC: FB.ED 12:01
DX: U07.1 COVID-19 (principal); J12.82 Pneumonia due to coronavirus disease 2019; D72.829 Elevated white blood cell count, unspecified; C90.00 Multiple myeloma not having achieved remission; E88.09 Other disorders of plasma-protein metabolism, not elsewhere classified; R79.89 Other specified abnormal findings of blood chemistry; D69.6 Thrombocytopenia, unspecified; D64.9 Anemia, unspecified; E78.00 Pure hypercholesterolemia, unspecified; I10 Essential (primary) hypertension; J45.909 Unspecified asthma, uncomplicated; E11.21 Type 2 diabetes mellitus with diabetic nephropathy; M19.90 Unspecified osteoarthritis, unspecified site; E11.40 Type 2 diabetes mellitus with diabetic neuropathy, unspecified; E66.9 Obesity, unspecified; Z68.44 Body mass index [BMI] 60.0-69.9, adult; Z88.0 Allergy status to penicillin; Z79.82 Long term (current) use of aspirin; Z79.4 Long term (current) use of insulin; Z79.899 Other long term (current) drug therapy
CPT/HCPCS: 36415; 71045; 80053; 80305; 81001; 82962; 83605; 84484; 85025; 86140; 87040; 87635; 87804; 93005; 96365; 96375; 96376; 99285; A9270; J0696; J3370; J7040; J8540; U0002

== ENCOUNTER 2021-01-03 18:50 | Emergency (ER) | payer MEDICAID ==
[2021-01-03] MEDS ORDERED: Morphine 10 MG/ML SDV IM ONE (19:18)
[2021-01-03] MEDS ORDERED: hydrOXYzine HCl 50 MG/ML SDV IM ONE (19:18)
--- NOTE | 2021-01-03 19:21 | EDM.PDOC ---
ED HPI GENERAL MEDICAL PROBLEM - General Stated Complaint: NOT FEELING WELL Time Seen by Provider: 01/03/21 19:19 Source of Information: Reports: Patient History Limitations: Reports: No Limitations - History of Present Illness INITIAL COMMENTS - FREE TEXT/NARRATIVE: Patti complains of severe bone pain ,especially hips,due to Multiple Myeloma. She takes Oxycodone but rectly ran out. Unable to get a hold of her pain doctor. - Related Data Allergies Allergy/AdvReac Type Severity Reaction Status Date / Time Penicillins Allergy Cannot Verified 11/23/20 12:27 Remember Home Meds: Home Meds ClonazePAM [KlonoPIN] 0.5 mg PO BID 04/28/14 [History] Ondansetron [Zofran ODT] 4 mg PO Q6H PRN #20 tab.dis 10/15/20 [Rx] Morphine [MS Contin] 15 mg PO Q12HR PRN 10/25/20 [History] Albuterol [Ventolin HFA] 2 puff .XX Q4H PRN 11/23/20 [History] Aspirin [Ecotrin EC] 325 mg PO DAILY 11/23/20 [History] Calcium Acetate [PhosLo] 667 mg PO TID 11/23/20 [History] Cyclobenzaprine [Flexeril] 10 mg PO BEDTIME 11/23/20 [History] DULoxetine [Cymbalta] 30 mg PO DAILY 11/23/20 [History] Docusate Sodium [Colace] 100 mg PO BID 11/23/20 [History] Insulin Glargine,Hum.Rec.Anlog [Lantus Solostar] 40 unit SQ BEDTIME 11/23/20 [History] Lisinopril/Hydrochlorothiazide [Lisinopril-Hctz 10-12.5 mg Tab] 1 tab DAILY 11/23/20 [History] Metoprolol Succinate [Toprol Xl] 50 mg PO DAILY 11/23/20 [History] Mupirocin Oint [Bactroban Oint] 1 appful TP BID 11/23/20 [History] Pantoprazole Sodium [Protonix] 40 mg DAILY 11/23/20 [History] Pregabalin [Lyrica] 300 mg PO BID 11/23/20 [History] Simvastatin 20 mg PO BEDTIME 11/23/20 [History] Simvastatin [Zocor] 20 mg PO DAILY 11/23/20 [History] metFORMIN [Glucophage] 1,000 mg PO BIDMEALS 11/23/20 [History] oxyCODONE 10 mg PO Q6H PRN 11/23/20 [History] Past Medical History HEENT History: Reports: Impaired Vision Cardiovascular History: Reports: High Cholesterol, Hypertension Other Cardiovascular History: palpitations Respiratory History: Reports: Asthma Gastrointestinal History: Reports: Hemorrhoids, Irritable Bowel Syndrome Genitourinary History: Reports: Diabetic Nephropathy, Renal Disease SPECIMEN ACCESSIONER History: Reports: Fibroids, Other SPECIMEN ACCESSIONER History: Musculoskeletal History: Reports: Back Pain, Chronic, Osteoarthritis Other Musculoskeletal History: R foot fx Neurological History: Reports: Migraines, Neuropathy, Diabetic Psychiatric History: Reports: Anxiety, Depression, Panic Attack, Psych Hospitalization(s) Other Psychiatric History: hx ETOH abuse Endocrine/Metabolic History: Reports: Diabetes, Type II, Obesity/BMI 30+ Hematologic History: Reports: Blood Transfusion(s), Other (See Below) Other Hematologic History: daptomycin out patient every other day, last 10-24-20 Immunologic History: Reports: Immunosuppression Other Immunologic History: chemo, last 11/16/20 Oncologic (Cancer) History: Reports: Other (See Below) Other Oncologic History: multiple myeloma Dermatologic History: Reports: Other (See Below) Other Dermatologic History: scabbed lesions upper torso & back - Infectious Disease History Infectious Disease History: Reports: Chicken Pox, Measles, MRSA, Mumps, Shingles - Past Surgical History HEENT Surgical History: Reports: Myringotomy w Tube(s) Social & Family History - Family History Family Medical History: No Pertinent Family History - Caffeine Use Caffeine Use: Reports: Coffee, Soda ED ROS GENERAL - Review of Systems Review Of Systems: Comprehensive ROS is negative, except as noted in HPI. ED EXAM, GENERAL - Physical Exam Exam: See Below Exam Limited By: No Limitations General Appearance: Alert, WD/WN Extremities: Normal Inspection Neurological: Alert, Oriented Course - Orders/Labs/Meds Orders: Active Orders 24 hr Category Date Time Status Morphine Med 01/03/21 19:18 Once 10 mg IM ONETIME ONE hydrOXYzine HCL [Vistaril] Med 01/03/21 19:18 Once 50 mg IM ONETIME ONE Medication Orders Hydroxyzine HCl (Vistaril) 50 mg IM ONETIME ONE Stop: 01/03/21 19:19 Morphine Sulfate (Morphine) 10 mg IM ONETIME ONE Stop: 01/03/21 19:19 Meds: Medications Generic Name Dose Route Start Last Admin Trade Name Lui PRN Reason Stop Dose Admin Hydroxyzine HCl 50 mg 01/03/21 19:18 Vistaril IM 01/03/21 19:19 ONETIME ONE Morphine Sulfate 10 mg 01/03/21 19:18 Morphine IM 01/03/21 19:19 ONETIME ONE Departure - Departure Time of Disposition: 19:20 Disposition: Home, Self-Care 01 Condition: Good Clinical Impression: Uncontrolled pain Multiple myeloma Qualifiers: Multiple myeloma remission status: unspecified Qualified Code(s): C90.00 - Multiple myeloma not having achieved remission - Discharge Information Referrals: PCP,None [Primary Care Provider] - - Problem List & Annotations (1) Multiple myeloma SNOMED Code(s): 814916700 Code(s): C90.00 - MULTIPLE MYELOMA NOT HAVING ACHIEVED REMISSION Status: Acute Current Visit: No Qualifiers: Multiple myeloma remission status: not in remission Qualified Code(s): C90.00 - Multiple myeloma not having achieved remission (2) Uncontrolled pain SNOMED Code(s): 75868534166441855 Code(s): R52 - PAIN, UNSPECIFIED Status: Acute Current Visit: Yes - Problem List Review Problem List Initiated/Reviewed/Updated: Yes - My Orders Last 24 Hours: My Active Orders 01/03/21 19:18 Morphine 10 mg IM ONETIME ONE hydrOXYzine HCL [Vistaril] 50 mg IM ONETIME ONE - Assessment/Plan Last 24 Hours: My Active Orders 01/03/21 19:18 Morphine 10 mg IM ONETIME ONE hydrOXYzine HCL [Vistaril] 50 mg IM ONETIME ONE Plan: DC home after MS 10 mg IM and Vistaril 50 mg IM
== END 2021-01-03 19:37 | disposition home or self-care (01) ==
LOC: FB.ED 18:50
DX: C90.00 Multiple myeloma not having achieved remission (principal); E78.00 Pure hypercholesterolemia, unspecified; I10 Essential (primary) hypertension; J45.909 Unspecified asthma, uncomplicated; M19.90 Unspecified osteoarthritis, unspecified site; E11.21 Type 2 diabetes mellitus with diabetic nephropathy; E11.40 Type 2 diabetes mellitus with diabetic neuropathy, unspecified; E66.9 Obesity, unspecified; Z68.37 Body mass index [BMI] 37.0-37.9, adult; Z79.82 Long term (current) use of aspirin; Z79.4 Long term (current) use of insulin
CPT/HCPCS: 96372; 99283; J2270; J3410

== ENCOUNTER 2021-10-27 10:53 | Emergency (ER) | payer MEDICAID, MEDICARE ==
--- NOTE | 2021-10-27 11:40 | EDM.PDOC ---
ED HPI GENERAL MEDICAL PROBLEM - General Stated Complaint: LOW BP Time Seen by Provider: 10/27/21 11:38 Source of Information: Reports: Patient History Limitations: Reports: No Limitations - History of Present Illness INITIAL COMMENTS - FREE TEXT/NARRATIVE: 60-year-old female with multiple myeloma and end-stage renal disease on hemodialysis who to dialysis this morning for her normal dialysis and was found to have a low blood pressure (80-90 systolic). According to the patient, they apparently repeated her blood pressure several times and it was still low. The patient reported that she was really having no symptoms. She had no chest pain or shortness of breath. She did feel tired but she states she always feels tired and she did have pain all over her body but she always has pain all over her b tay related to her multiple myeloma and she is on chronic narcotic pain management for this. She denies any fevers or chills. No abdominal pain. No dysuria. No cough. No nasal congestion or sore throat. She also reports she has been taking her medications as directed. Presents to the emergency department via private vehicle with her . There are no other associated signs or symptoms. There are no other modifying factors. 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: Other (see below) (Nothing.) - Related Data Allergies Allergy/AdvReac Type Severity Reaction Status Date / Time Penicillins Allergy Cannot Verified 10/27/21 12:11 Remember Home Meds: Home Meds ClonazePAM [KlonoPIN] 0.5 mg PO BID 04/28/14 [History] Ondansetron [Zofran ODT] 4 mg PO Q6H PRN #20 tab.dis 10/15/20 [Rx] Morphine [MS Contin] 15 mg PO Q12HR PRN 10/25/20 [History] Albuterol [Ventolin HFA] 2 puff .XX Q4H PRN 11/23/20 [History] Aspirin [Ecotrin EC] 325 mg PO DAILY 11/23/20 [History] Calcium Acetate [PhosLo] 667 mg PO TID 11/23/20 [History] Cyclobenzaprine [Flexeril] 10 mg PO BEDTIME 11/23/20 [History] DULoxetine [Cymbalta] 30 mg PO DAILY 11/23/20 [History] Docusate Sodium [Colace] 100 mg PO BID 11/23/20 [History] Insulin Glargine,Hum.Rec.Anlog [Lantus Solostar] 40 unit SQ BEDTIME 11/23/20 [History] Lisinopril/Hydrochlorothiazide [Lisinopril-Hctz 10-12.5 mg Tab] 1 tab DAILY 11/23/20 [History] Metoprolol Succinate [Toprol Xl] 50 mg PO DAILY 11/23/20 [History] Mupirocin Oint [Bactroban Oint] 1 appful TP BID 11/23/20 [History] Pantoprazole Sodium [Protonix] 40 mg DAILY 11/23/20 [History] Pregabalin [Lyrica] 300 mg PO BID 11/23/20 [History] Simvastatin 20 mg PO BEDTIME 11/23/20 [History] Simvastatin [Zocor] 20 mg PO DAILY 11/23/20 [History] metFORMIN [Glucophage] 1,000 mg PO BIDMEALS 11/23/20 [History] oxyCODONE 10 mg PO Q6H PRN 11/23/20 [History] Past Medical History HEENT History: Reports: Impaired Vision Cardiovascular History: Reports: High Cholesterol, Hypertension Other Cardiovascular History: palpitations Respiratory History: Reports: Asthma Gastrointestinal History: Reports: Hemorrhoids, Irritable Bowel Syndrome Genitourinary History: Reports: Diabetic Nephropathy, Renal Disease ANESTHESIA DIRECTOR History: Reports: Fibroids Other ANESTHESIA DIRECTOR History: Musculoskeletal History: Reports: Back Pain, Chronic, Osteoarthritis Other Musculoskeletal History: R foot fx Neurological History: Reports: Migraines, Neuropathy, Diabetic Psychiatric History: Reports: Anxiety, Depression, Panic Attack, Psych Hospitalization(s) Other Psychiatric History: hx ETOH abuse Endocrine/Metabolic History: Reports: Diabetes, Type II, Obesity/BMI 30+ Hematologic History: Reports: Blood Transfusion(s), Other (See Below) Other Hematologic History: daptomycin out patient every other day, last 10-24-20 Immunologic History: Reports: Immunosuppression Other Immunologic History: chemo, last 11/16/20 Oncologic (Cancer) History: Reports: Other (See Below) Other Oncologic History: multiple myeloma - Infectious Disease History Infectious Disease History: Reports: Chicken Pox, Measles, MRSA, Mumps, Shingles - Past Surgical History HEENT Surgical History: Reports: Myringotomy w Tube(s) Cardiovascular Surgical History: Reports: Other (See Below) (AV fistula in left arm.) Social & Family History - Tobacco Use Tobacco Use Status *Q: Current Every Day Tobacco User - Caffeine Use Caffeine Use: Reports: Coffee, Tea - Alcohol Use Alcohol Use History: Yes Alcohol Use in Last Twelve Months: No Alcohol Use Comment: Patient denies any current alcohol use. - Living Situation & Occupation Living situation: Reports: , with Spouse ED ROS GENERAL - Review of Systems Review Of Systems: See Below Constitutional: Denies: Fever, Chills, Malaise, Weakness, Diaphoresis HEENT: Denies: Throat Pain, Throat Swelling Respiratory: Denies: Shortness of Breath, Cough Cardiovascular: Denies: Chest Pain, Lightheadedness, Syncope Endocrine: Reports: Fatigue GI/Abdominal: Denies: Abdominal Pain, Diarrhea, Nausea, Vomiting : Denies: Dysuria, Flank Pain Musculoskeletal: Reports: Other (Diffuse bone and muscle pain, Chronic) Skin: Denies: Diaphoresis, Rash, Wound Neurological: Denies: Dizziness, Syncope Hematologic/Lymphatic: Denies: Easy Bleeding, Easy Bruising ED EXAM, GENERAL - Physical Exam Exam: See Below Exam Limited By: No Limitations General Appearance: WD/WN, No Apparent Distress, Other (Somewhat sleepy) Eye Exam: Bilateral Eye: EOMI, Normal Inspection, PERRL Ears: Normal External Exam, Hearing Grossly Normal Ear Exam: Bilateral Ear: Auricle Normal Nose: Normal Inspection, Normal Mucosa, No Blood Throat/Mouth: Normal Voice, No Airway Compromise, Other (Somewhat dry mucous membranes. Poor dentition.) Head: Atraumatic, Normocephalic Neck: Normal Inspection, Supple, Non-Tender, Full Range of Motion Respiratory/Chest: No Respiratory Distress, Lungs Clear, Normal Breath Sounds, Chest Non-Tender Cardiovascular: Normal Peripheral Pulses, Regular Rate, Rhythm, No Gallop, No JVD Peripheral Pulses: 2+: Radial (L), Radial (R) GI/Abdominal: Normal Bowel Sounds, Soft, Non-Tender, No Mass Back Exam: Normal Inspection, Full Range of Motion. No: CVA Tenderness (R), CVA Tenderness (L) Extremities: Normal Inspection, Normal Range of Motion, Non-Tender, No Pedal Edema, Normal Capillary Refill Neurological: Alert, Oriented, CN II-XII Intact, Normal Cognition, No Motor/Sensory Deficits Psychiatric: Normal Affect, Normal Mood Skin Exam: Warm, Dry, Intact, Normal Color, No Rash #1 Interpretation EKG Date: 10/27/21 Time: 12:38 Rhythm: NSR Rate (Beats/Min): 61 [place]: Normal P-Wave: Present QRS: Normal ST-T: Normal QT: Normal Comparison: No Change (No change from EKG performed on 11/23/2020.) Course - Vital Signs Last Recorded V/S: Last Vital Signs Temp 36.2 C 10/27/21 10:53 Pulse 63 10/27/21 10:53 Resp 18 10/27/21 10:53 BP 91/52 L 10/27/21 10:53 Pulse Ox 94 L 10/27/21 10:53 Orthostatic Blood Pressure [ 102/62 Standing] Orthostatic Blood Pressure [ 110/62 Sitting] Orthostatic Blood Pressure [ 101/57 Supine] - Orders/Labs/Meds Orders: Active Orders 24 hr Category Date Time Status Chest 1V Frontal [CR] Stat Exams 10/27/21 11:54 Taken Peripheral IV Insertion Adult [OM.PC] Routine Oth 10/27/21 11:54 Ordered EKG 12 Lead [EK] Routine Ther 10/27/21 11:56 Ordered Labs: Laboratory Tests 10/27/21 10/27/21 10/27/21 Range/Units 12:10 12:10 12:10 WBC 12.8 H (3.0-10.3) x10-3/uL RBC 3.07 L (3.60-5.20) x10(6)uL Hgb 9.2 L (11.4-15.5) g/dL Hct 27.8 L (34.2-48.2) % MCV 90.4 (76.7-100.5) fL MCH 29.9 (23.9-33.9) pg MCHC 33.1 (31.9-34.8) g/dL RDW 15.3 (12.3-16.5) % Plt Count 198 (151-488) x10(3)uL MPV 8.4 (7.1-12.4) fL Neut % (Auto) 70.3 (30.8-76.2) % Lymph % (Auto) 19.1 (18.4-52.1) % Esmeralda % (Auto) 8.3 (4.4-15.7) % Eos % (Auto) 2.0 (0.6-8.1) % Baso % (Auto) 0.3 (0.2-1.5) % Neut # (Auto) 9.0 H (1.5-6.3) x10-3/uL Lymph # (Auto) 2.5 (1.0-4.4) x10-3/uL Esmeralda # (Auto) 1.1 H (0.3-1.0) x10-3/uL Eos # (Auto) 0.3 (0.0-0.8) x10-3/uL Baso # (Auto) 0.0 (0.0-0.1) x10-3/uL Sodium 126 L (135-145) mmol/L Potassium 5.1 D (3.5-5.3) mmol/L Chloride 91 L (100-110) mmol/L Carbon Dioxide 22 (21-32) mmol/L BUN 107 H* (7-18) mg/dL Creatinine 10.4 H* (0.55-1.02) mg/dL Est Cr Clr Drug Dosing 5.38 mL/min Estimated GFR (MDRD) 4 L (>60) BUN/Creatinine Ratio 10.3 (9-20) Glucose 125 H (80-116) mg/dL Calcium 9.3 (8.6-10.2) mg/dL Magnesium 2.3 (1.8-2.5) mg/dL Total Bilirubin 0.5 (0.1-1.3) mg/dL AST 38 H D (5-25) IU/L ALT 93 H D (12-36) U/L Alkaline Phosphatase 139 H (56-112) IU/L C-Reactive Protein 1.6 H (0.5-0.9) mg/dL Total Protein 6.8 (6.0-8.0) g/dL Albumin 3.3 L (3.5-5.2) g/dL Globulin 3.5 g/dL Albumin/Globulin Ratio 0.9 Urine Color (YELLOW) Urine Appearance (CLEAR) Urine pH (5.0-6.5) Ur Specific [place] (1.010-1.025) Urine Protein (NEGATIVE) mg/dL Urine Glucose (UA) (NORMAL) mg/dL Urine Ketones (NEGATIVE) mg/dL Urine Occult Blood (NEGATIVE) Urine Nitrite (NEGATIVE) Urine Bilirubin (NEGATIVE) Urine Urobilinogen (NEGATIVE) mg/dL Ur Leukocyte Esterase (NEGATIVE) Urine RBC (0-5) Urine WBC (0-5) Ur Squamous Epith Cells (NS,R,O) Urine Bacteria (NS) SARS-CoV-2 RNA (BLADE) (NEGATIVE) 10/27/21 10/27/21 Range/Units 13:15 13:30 WBC (3.0-10.3) x10-3/uL RBC (3.60-5.20) x10(6)uL Hgb (11.4-15.5) g/dL Hct (34.2-48.2) % MCV (76.7-100.5) fL MCH (23.9-33.9) pg MCHC (31.9-34.8) g/dL RDW (12.3-16.5) % Plt Count (151-488) x10(3)uL MPV (7.1-12.4) fL Neut % (Auto) (30.8-76.2) % Lymph % (Auto) (18.4-52.1) % [place]mer[place]da % (Auto) (4.4-15.7) % Eos % (Auto) (0.6-8.1) % Baso % (Auto) (0.2-1.5) % Neut # (Auto) (1.5-6.3) x10-3/uL Lymph # (Auto) (1.0-4.4) x10-3/uL [place]mer[place] # (Auto) (0.3-1.0) x10-3/uL Eos # (Auto) (0.0-0.8) x10-3/uL Baso # (Auto) (0.0-0.1) x10-3/uL Sodium (135-145) mmol/L Potassium (3.5-5.3) mmol/L Chloride (100-110) mmol/L Carbon Dioxide (21-32) mmol/L BUN (7-18) mg/dL Creatinine (0.55-1.02) mg/dL Est Cr Clr Drug Dosing mL/min Estimated GFR (MDRD) (>60) BUN/Creatinine Ratio (9-20) Glucose (80-116) mg/dL Calcium (8.6-10.2) mg/dL Magnesium (1.8-2.5) mg/dL Total Bilirubin (0.1-1.3) mg/dL AST (5-25) IU/L ALT (12-36) U/L Alkaline Phosphatase (56-112) IU/L C-Reactive Protein (0.5-0.9) mg/dL Total Protein (6.0-8.0) g/dL Albumin (3.5-5.2) g/dL Globulin g/dL Albumin/Globulin Ratio Urine Color Yellow (YELLOW) Urine Appearance Clear (CLEAR) Urine pH 7.0 H (5.0-6.5) Ur Specific [place] 1.005 L (1.010-1.025) Urine Protein Negative (NEGATIVE) mg/dL Urine Glucose (UA) Normal (NORMAL) mg/dL Urine Ketones Negative (NEGATIVE) mg/dL Urine Occult Blood Moderate H (NEGATIVE) Urine Nitrite Negative (NEGATIVE) Urine Bilirubin Negative (NEGATIVE) Urine Urobilinogen Normal (NEGATIVE) mg/dL Ur Leukocyte Esterase Negative (NEGATIVE) Urine RBC 0-5 (0-5) Urine WBC 0-5 (0-5) Ur Squamous Epith Cells Few H (NS,R,O) Urine Bacteria Few H (NS) SARS-CoV-2 RNA (BLADE) Negative (NEGATIVE) Meds: Medications Discontinued Medications Generic Name Dose Route Start Last Admin Trade Name Freq PRN Reason Stop Dose Admin Sodium Chloride 500 mls @ 999 mls/hr 10/27/21 11:56 10/27/21 12:12 Normal Saline IV 10/27/21 12:26 999 mls/hr .BOLUS ONE Administration Sodium Chloride 10 ml 10/27/21 11:54 Sodium Chloride 0.9% 10 Ml Syringe FLUSH ASDIRECTED PRN Keep Vein Open - Radiology Interpretation Free Text/Narrative:: Portable Chest x-ray showed no acute disease per my read. - Re-Assessments/Exams Free Text/Narrative Re-Assessment/Exam: 10/27/21 12:45: White blood cell count is 12.8. Hemoglobin is 9.2 which is in keeping with previous hemoglobins. Platelet count is normal. Sodium is 126. She has had somewhat low sodium before. Potassium is 5.1. Bicarbonate is 22. BUN is 107 and creatinine is 10.4. Glucose is 125. AST and ALT are mildly elevated. CRP is 1.6. Magnesium is normal. The patient has received normal saline 500 mL as a bolus and she had orthostatic vital signs performed and there were no orthostatic changes. Her blood blood pressure has stayed in the 100 systolic range. She is awake and alert. She is able to ambulate. She is continually stating that she wants to go home. 10/27/21 14:26: A urinalysis was negative. A Covid test was negative. The patient has remained with a blood pressure in the 100 systolic range. She is awake and alert. She has been ambulating about the emergency department without any problems. I do not see any definite evidence of infection or other serious cause of her hypotension. It may be that she is having some in her blood pressure related to her chronic disease and therefore I will have her decrease her metoprolol XL to 25 mg daily. I will also have her decrease her lisinopril 08/28.5 down to one half tab of this daily. She will need to monitor her blood pressures daily and keep a record of them. She should make sure she shows up for her next dialysis appointment. Precautions and reasons for return to the emergency department were discussed with the patient while she was in the emergency department and were detailed in the patient's discharge instructions. Departure - Departure Time of Disposition: 14:35 Disposition: Home, Self-Care 01 Condition: Good (Improved) Clinical Impression: Transient hypotension, End stage renal disease, Volume depletion, Hyponatremia - Discharge Information Instructions: Hypotension, [id number] Referrals: Frank Faria MD [Primary Care Provider] - Forms: ED Department Discharge Additional Instructions: Your blood tests were unchanged from previous. You do have kidney failure but this is chronic and unchanged. Your EKG was normal. Your chest x-ray showed no evidence of pneumonia. Your urine test showed no evidence of infection. Your Covid test was negative. Your blood pressures were low when you arrived but after a small amount of IV fluids, they were stable and they did not change with position. I am unsure why you are having the low blood pressure but did only take of your metoprolol tablet and half of your lisinopril/hydrochlorothiazide tablet daily. You need to take your blood pressure daily and keep a record of it and plan on following up with your primary provider this coming week. Deep your next appointment for dialysis. Back to the emergency department for vomiting, persistent low blood pressures, severe weakness, difficulty breathing, high fevers or any other concerning signs or symptoms. - My Orders Last 24 Hours: My Active Orders 10/27/21 11:54 Chest 1V Frontal [CR] Stat Peripheral IV Insertion Adult [OM.PC] Routine 10/27/21 11:56 EKG 12 Lead [EK] Routine - Assessment/Plan Last 24 Hours: My Active Orders 10/27/21 11:54 Chest 1V Frontal [CR] Stat Peripheral IV Insertion Adult [OM.PC] Routine 10/27/21 11:56 EKG 12 Lead [EK] Routine
[2021-10-27] MEDS ORDERED: Sodium Chloride 0.9% 10 ML Syringe FLUSH PRN (11:54)
[2021-10-27] MEDS ORDERED: Sodium Chloride 0.9% 500 ML IV ONE (11:56)
[2021-10-27 12:10] VITALS: BP 91/52; PULSE 63
--- NOTE | 2021-10-29 14:07 | CR ---
INDICATION: Low blood pressure. CHEST, ONE VIEW: AP upright portable view of the chest, 10/27/21, was compared with 11/23/20 and 10/25/20. A double-channel central line is noted with its tip in good position above the right atrium in the area of the SVC. The interstitial changes present on the previous examination have diminished somewhat, which may be on the basis of resolving edema and/or pneumonia. No gross consolidating pneumonia or effusion was seen. The heart did not appear enlarged. IMPRESSION: Heavy interstitial markings, which may be on the basis of pulmonary vascular congestion and/or residual infiltration or fibrosis. This should be correlated clinically. MTDD
== END 2021-10-27 14:35 | disposition home or self-care (01) ==
LOC: EEVIPCON 10:53 → FB.ED 10:53
DX: I95.9 Hypotension, unspecified (principal); E86.9 Volume depletion, unspecified; E87.1 Hypo-osmolality and hyponatremia; I12.0 Hypertensive chronic kidney disease with stage 5 chronic kidney disease or end stage renal disease; E11.22 Type 2 diabetes mellitus with diabetic chronic kidney disease; N18.6 End stage renal disease; E78.00 Pure hypercholesterolemia, unspecified; J45.909 Unspecified asthma, uncomplicated; E11.21 Type 2 diabetes mellitus with diabetic nephropathy; M19.90 Unspecified osteoarthritis, unspecified site; E11.40 Type 2 diabetes mellitus with diabetic neuropathy, unspecified; E66.9 Obesity, unspecified; Z68.20 Body mass index [BMI] 20.0-20.9, adult; Z72.0 Tobacco use; Z88.0 Allergy status to penicillin; Z79.82 Long term (current) use of aspirin; Z79.4 Long term (current) use of insulin; Z79.899 Other long term (current) drug therapy; Z20.822 Contact with and (suspected) exposure to COVID-19
CPT/HCPCS: 36415; 71045; 80053; 81001; 83735; 85025; 86140; 87635; 93005; 99285; J7040; U0002

== ENCOUNTER 2022-10-11 17:25 | Emergency (ER) | payer MEDICARE, MEDICAID ==
[2022-10-11] MEDS ORDERED: Albuterol 0.083% 2.5 MG/3 ML Neb Soln NEB ONE (17:36)
[2022-10-11] MEDS ORDERED: oxyCODONE 5 MG Tab PO ONE (17:36)
[2022-10-11 17:54] LABS: ESTIMATED GFR 6 mL/min (>60)
[2022-10-11] MEDS ORDERED: Sodium Polystyrene Sulfonate 15 GM/60 ML Susp 60 ML Bot PO ONE (17:55)
[2022-10-11] MEDS ORDERED: Calcium Gluconate 10% 1 GM/10 ML SDV IVPUSH ONE (18:08)
[2022-10-11 19:56] VITALS: BP 153/77; PULSE 83
== END 2022-10-11 18:50 | disposition home or self-care (01) ==
LOC: FB.ED 17:25
DX: E87.5 Hyperkalemia (principal); E78.00 Pure hypercholesterolemia, unspecified; I10 Essential (primary) hypertension; J45.909 Unspecified asthma, uncomplicated; E11.21 Type 2 diabetes mellitus with diabetic nephropathy; M19.90 Unspecified osteoarthritis, unspecified site; E11.40 Type 2 diabetes mellitus with diabetic neuropathy, unspecified; E66.9 Obesity, unspecified; Z68.1 Body mass index [BMI] 19.9 or less, adult; Z88.0 Allergy status to penicillin; Z79.82 Long term (current) use of aspirin; Z79.4 Long term (current) use of insulin; Z79.899 Other long term (current) drug therapy
CPT/HCPCS: 36415; 80048; 93005; 94640; 96374; 99284; A9270; J0610

== ENCOUNTER 2023-09-13 19:06 | Emergency (ER) | payer MEDICARE, MEDICAID ==
[2023-09-13] MEDS ORDERED: EPINEPHrine 1 MG/1 ML Amp IVPUSH ONE ×4 (19:09→19:24)
[2023-09-13] MEDS ORDERED: EPINEPHrine 1 MG/ML 30 ML MDV IVPUSH ONE ×2 (19:09→19:13)
[2023-09-13] MEDS: EPINEPHrine 1:10,000 1 MG/10 ML Syringe IVPUSH ONE (19:09)
[2023-09-13] MEDS: EPINEPHrine 1:10,000 1 MG/10 ML Syringe IVPUSH PRN ×5 (19:09→19:24)
[2023-09-13] MEDS ORDERED: Sodium Chloride 0.9% 1,000 ML IV ONE (19:10)
[2023-09-13 20:08] LABS: PROTHROMBIN TIME 16.5 sec (9.0-11.1)
[2023-09-13 20:09] LABS: INR 1.62 (1.00-1.24); PTT,PARTIAL THROMBOPLSTIN TIME 122.2 SECONDS (24.4-33.2); TROPONIN I 611.5 pg/mL (4.0-60.3)
[2023-09-13 20:10] LABS: CARBON DIOXIDE,CO2 11 mmol/L (21-32); CHLORIDE,CL 100 mmol/L (100-110); GLUCOSE RANDOM 324 mg/dL (80-116); POTASSIUM,K 4.2 mmol/L (3.5-5.3); SODIUM,NA 134 mmol/L (135-145)
[2023-09-13 20:11] LABS: A/G RATIO 0.5; ALANINE AMINOTRANSFERASE,ALT 146 U/L (12-36); ALBUMIN 1.8 g/dL (3.2-4.6); ALKALINE PHOSPHATASE 171 IU/L (56-112); BILIRUBIN TOTAL 0.5 mg/dL (0.1-1.3); BLOOD UREA NITROGEN,BUN 110 mg/dL (7-18); BUN/CREATININE RATIO 12.2 (9-20); CALCIUM 9.5 mg/dL (8.6-10.2); ESTIMATED GFR 5 mL/min (>60); PROTEIN TOTAL,TP 5.8 g/dL (6.0-8.0)
[2023-09-13 20:12] LABS: ASPARTATE AMNIOTRANSFERASE,AST 372 IU/L (5-25)
[2023-09-13 20:13] LABS: HEMATOCRIT 35.6 % (34.2-48.2); HEMOGLOBIN 10.9 g/dL (11.4-15.5); MEAN CORPUSCULAR HEMOGLOBIN 31.5 pg (23.9-33.9); MEAN CORPUSCULAR HGB CONC 30.7 g/dL (31.9-34.8); MEAN CORPUSCULAR VOLUME 102.7 fL (76.7-100.5); MEAN PLATELET VOLUME 10.3 fL (7.1-12.4); PLATELET COUNT,PLT 94 x10(3)uL (151-488); RED BLOOD CELL COUNT 3.47 x10(6)uL (3.60-5.20); RED CELL DISTRIBUTION WIDTH 15.6 % (12.3-16.5); WHITE BLOOD CELL COUNT,WBC 21.5 x10-3/uL (3.0-10.3)
[2023-09-13 20:14] LABS: BAND PERCENT MAN 4 % (0-6); LYMPHOCYTES PERCENT MAN 41 % (13-37); MONOCYTES PERCENT MAN 7 % (4-12); SEG NEUTROPHILS PERCENT MAN 48 % (46-82)
[2023-09-13 20:43] LABS: INFLUENZA A NAA NEGATIVE (NEGATIVE); INFLUENZA B NAA NEGATIVE (NEGATIVE); RESPIRATORY SYNCYTIAL VIR NAA NEGATIVE (NEGATIVE)
[2023-09-13 20:44] LABS: CORONAVIRUS COVID-19 NAA NEGATIVE (NEGATIVE)
[2023-09-15 04:28] VITALS: BP 196/146; PULSE 36
[2023-09-15] MEDS ORDERED: EPINEPHrine 1 MG/ML 30 ML MDV IVPUSH PRN (17:06)
[2023-09-15] MEDS ORDERED: Sodium Chloride 0.9% 1,000 ML IV ONE (19:10)
[2023-09-15] MEDS: Sodium Chloride 0.9% 1,000 ML IV ONE (19:10)
[2023-09-15] MEDS ORDERED: EPINEPHrine 1 MG/ML 30 ML MDV IVPUSH ONE (20:55)
[2023-09-16] MEDS: EPINEPHrine 1:10,000 1 MG/10 ML Syringe IVPUSH ONE (00:53)
[2023-09-16] MEDS: Sodium Chloride 0.9% 1,000 ML IV ONE (02:33)
== END 2023-09-13 19:26 | disposition expired ==
LOC: FB.ED 19:06
DX: I24.9 Acute ischemic heart disease, unspecified (principal); C90.00 Multiple myeloma not having achieved remission; I12.0 Hypertensive chronic kidney disease with stage 5 chronic kidney disease or end stage renal disease; E11.22 Type 2 diabetes mellitus with diabetic chronic kidney disease; N18.6 End stage renal disease; E78.00 Pure hypercholesterolemia, unspecified; J45.909 Unspecified asthma, uncomplicated; E11.21 Type 2 diabetes mellitus with diabetic nephropathy; M19.90 Unspecified osteoarthritis, unspecified site; E11.40 Type 2 diabetes mellitus with diabetic neuropathy, unspecified; F17.210 Nicotine dependence, cigarettes, uncomplicated; E66.9 Obesity, unspecified; Z86.16 Personal history of COVID-19; Z88.0 Allergy status to penicillin; Z79.899 Other long term (current) drug therapy; Z79.82 Long term (current) use of aspirin; Z79.4 Long term (current) use of insulin; Z20.822 Contact with and (suspected) exposure to COVID-19
CPT/HCPCS: 0241U; 31500; 36415; 80053; 83880; 84484; 85025; 85610; 85730; 92950; 99285; 99285-25; J0171; J7030